=== PATIENT | male | born 1950 | race Caucasian/White ===

== ENCOUNTER 2018-05-05 16:54 | Inpatient (IN) | payer MEDICARE, OTHER, SELFPAY ==
[2018-05-05 17:19] VITALS: BP 111/67; PULSE 76; RESP 16; TEMP 36.7; O2SAT 98
--- NOTE | 2018-05-05 17:52 | DI.REPORT_ITS ---
SYMPTOM/DIAGNOSIS: FEVER IN ONCOLOGY PT PA AND LATERAL CHEST: No priors. The heart is normal in size. The lungs are clear. The mediastinal structures and pleura appear intact. CONCLUSION: Normal chest.
--- NOTE | 2018-05-05 17:52 | ED.GENADUL ---
Disposition Clinical Impression: Neutropenic fever Disposition: [facility] INPATIENT Condition: Serious Medical Decision Making - Lab Data Laboratory Tests 05/05/18 05/05/18 05/05/18 18:09 18:20 18:20 WBC RBC Hgb Hct MCV MCH MCHC RDW Plt Count MPV Immature Gran % Neutrophils % Lymphocytes % Monocytes % Eosinophils % Basophils % Absolute Neutrophils Absolute Lymphocytes Absolute Monocytes Absolute Eosinophils Absolute Basophils Differential Comment RBC Morphology Sodium 134 L Potassium 4.3 Chloride 102 Carbon Dioxide 28.8 Anion Gap 3.2 BUN 15 Creatinine 1.13 Estimated GFR/1.73 m2 >= 60.00 Glucose 106 H Lactate 1.0 Calcium 8.5 Total Bilirubin 0.5 AST 26 ALT 23 Alkaline Phosphatase 93 Total Protein 6.3 L Albumin 3.1 L Urine Color Yellow Urine Clarity Clear Urine pH 7.0 Ur Specific [place] 1.015 Urine Protein Negative Urine Ketones Negative Urine Blood Trace-intact H Urine Nitrite Negative Urine Bilirubin Negative Urine Urobilinogen 2.0 H Ur Leukocyte Esterase Negative Urine RBC 0-2 Urine WBC 0-2 Ur Epithelial Cells Rare Urine Crystals Negative Urine Bacteria Rare Urine Casts Negative Urine Mucus Negative Ur Culture Indicated? No Urine Glucose Negative 05/05/18 18:20 WBC 1.98 L* RBC 3.03 L Hgb 9.2 L Hct 26.9 L MCV 88.8 MCH 30.4 MCHC 34.2 RDW 14.0 Plt Count 119 L MPV 9.9 Immature Gran % 0.0 Neutrophils % 34.9 Lymphocytes % 53.0 Monocytes % 10.6 Eosinophils % 0.0 Basophils % 1.5 Absolute Neutrophils 0.69 L Absolute Lymphocytes 1.05 L Absolute Monocytes 0.21 Absolute Eosinophils 0.00 Absolute Basophils 0.03 Differential Comment Diff reviewed RBC Morphology Normal Sodium Potassium Chloride Carbon Dioxide Anion Gap BUN Creatinine Estimated GFR/1.73 m2 Glucose Lactate Calcium Total Bilirubin AST ALT Alkaline Phosphatase Total Protein Albumin Urine Color Urine Clarity Urine pH Ur Specific [place] Urine Protein Urine Ketones Urine Blood Urine Nitrite Urine Bilirubin Urine Urobilinogen Ur Leukocyte Esterase Urine RBC Urine WBC Ur Epithelial Cells Urine Crystals Urine Bacteria Urine Casts Urine Mucus Ur Culture Indicated? Urine Glucose Results reviewed for labs ordered during visit: Yes - Radiology Data Radiology results: report reviewed Pleural effusion, no pneumothorax. Heart and mediastinum is unremarkable. No cardiomegaly. Marginal anterior osteophytic spurring is present throughout the thoracic vertebra. There is diffuse osteoporosis. - Medical Decision Making Patient presents today with chief complaint of neutropenic fever. He reports that he is currently undergoing chemotherapy for prostate cancer. Last check had his laboratory evaluation checked just prior to recent chemotherapy dosing. This completed on 04/26/2018. At that time, patient's WBC was 4.3. He was noted to be anemic with a hemoglobin of 11.1. Creatinine was 1.38. BUN 21. GFR 52. Patient also has history of pulmonary embolism is currently anticoagulated on Eliquis. Patient appears slightly dehydrated but otherwise well. Lungs are clear. No acute ENT findings. Abdomen is soft and nontender. He does appear fatigued. Patient is offered antiemetic which he is declining at this time. He reports that this round of chemotherapy has been particularly hard on him from both a GI source as well as fatigue. He reports that he has had large amount of nausea and vomiting. States that T-max of 99.5? at home. Will obtain laboratory evaluation and chest x-ray. Discussed this plan with the patient and his , and they are agreeable with this plan. Laboratory evaluation significant for WBC of 1.90, this is down from 4.3. ANC is 0.69. Consulted with Dr. Goldstein, oncologist with [facility] in [place]. He advised that with the ANC being less than 1 and WBC, patient be admitted for IV antibiotics and continued monitoring of his CBC. He advised treating the patient prophylactically with ceftazidime. Will consult with hospitalist begin patient on IV antibiotics. Discussed this plan with the patient is and they are in agreement. Patient is now noted to be 37.6?C, this is a from 37.6 when he first presented. Patient offered Tylenol, he is agreeable to this. Prior to beginning the IV antibiotics we will obtain blood cultures peer Consulted with Dr. harley at the end. We discussed patient being admitted for neutropenic fever. Discussed patient's history and laboratory evaluation. He agrees to admission. Discussed this with the patient and his . All of their questions and concerns were addressed in agreement this plan. History of Present Illness - General Chief complaint: Fever Stated complaint: FEVER PER DR SR Time Seen by Provider: 05/05/18 17:52 Source: patient, family, RN notes reviewed Mode of arrival: ambulatory Limitations: no limitations - History of Present Illness Initial comments: Patient is 67-year-old male, covered by his , with chief complaint of fever. Patient is currently undergoing chemotherapy in [place] for prostate cancer. Patient was last seen by oncologist on 04/26/2018 at which time he received his last dose of chemotherapy. At that time, patient's white blood cell count was 4.3. Patient reports that since his most recent dose of chemotherapy he has been feeling weak, having difficulty with GI upset and fatigue. However, he noted today that he was having chills and feeling feverish. T-max of 99.5? air in height. States that he has continued to have nausea and vomiting. He denies any abdominal pain. Denies any headache. Denies visual changes. No sore throat. Denies any cough or shortness of breath. No chest pain. He denies any rash. Denies any change in bowel or bladder habits. Denies any dysuria or hematuria. Patient is on Eliquis for recent diagnosis of pulmonary embolism. Diagnosis of pulmonary emboli were made on routine scan for metastasis. - Related Data Apixaban [Eliquis] 5 mg PO BID 05/05/18 Lactulose 30 ml PO HS 05/05/18 Lorazepam [Ativan] 0.5 mg PO Q6H PRN 05/05/18 Olanzapine [Zyprexa] 5 mg PO HS 05/05/18 Ondansetron ODT [Zofran Odt] 8 mg PO Q8H PRN 05/05/18 Pantoprazole [Protonix] 40 mg PO DAILY 05/05/18 Prochlorperazine Maleate [Compazine] 10 mg PO Q6H PRN 05/05/18 Allergies Allergy/AdvReac Type Severity Reaction Status Date / Time No Known Allergies Allergy Unverified 05/05/18 17:27 Review of Systems Constitutional: see HPI Eyes: denies: vision change ENT: as per HPI Respiratory: no symptoms reported. denies: cough, shortness of breath Cardiovascular: denies: chest pain, palpitations, dyspnea on exertion Gastrointestinal: nausea, vomiting. denies: abdominal pain, diarrhea, constipation Musculoskeletal: denies: back pain Skin: denies: rash, lesions Neurological: denies: headache Past Medical History - Past Medical History Medical history: cancer, GERD, PE - Social History Living Situation: lives with family General Exam - General Limitations: no limitations General appearance: alert, in no apparent distress - Eye Eye exam: Present: normal apperance - ENT ENT exam: Present: mucous membranes dry - Neck Neck exam: Present: normal inspection. Absent: tenderness, lymphadenopathy - Respiratory Respiratory exam: Present: normal lung sounds bilaterally. Absent: respiratory distress - Cardiovascular Cardiovascular Exam: Present: regular rate, normal rhythm, normal heart sounds - GI/Abdominal GI/Abdominal exam: Present: soft, normal bowel sounds. Absent: distended, tenderness, guarding, rebound, rigid - Rectal Rectal exam: Present: deferred - Back Exam Back exam: Present: normal inspection. Absent: CVA tenderness (R), CVA tenderness (L) - Neurological Exam Neurological exam: Present: alert, normal gait - Psychiatric Psychiatric exam: Present: normal affect, normal mood - Skin Skin exam: Present: warm, dry, normal color Course Vital Signs - 24 hr 05/05/ 17:19 Temperature 36.7 C Pulse 76 Respiratory 16 Rate Blood Pressure 111/67 Pulse Oximetry 98
--- NOTE | 2018-05-05 17:55 | ED.GENADUL_ITS ---
Disposition Clinical Impression: Neutropenic fever Disposition: [facility] INPATIENT Condition: Serious Medical Decision Making - Lab Data Laboratory Tests 05/05/18 05/05/18 05/05/18 18:09 18:20 18:20 WBC RBC Hgb Hct MCV MCH MCHC RDW Plt Count MPV Immature Gran % Neutrophils % Lymphocytes % Monocytes % Eosinophils % Basophils % Absolute Neutrophils Absolute Lymphocytes Absolute Monocytes Absolute Eosinophils Absolute Basophils Differential Comment RBC Morphology Sodium 134 L Potassium 4.3 Chloride 102 Carbon Dioxide 28.8 Anion Gap 3.2 BUN 15 Creatinine 1.13 Estimated GFR/1.73 m2 >= 60.00 Glucose 106 H Lactate 1.0 Calcium 8.5 Total Bilirubin 0.5 AST 26 ALT 23 Alkaline Phosphatase 93 Total Protein 6.3 L Albumin 3.1 L Urine Color Yellow Urine Clarity Clear Urine pH 7.0 Ur Specific [place] 1.015 Urine Protein Negative Urine Ketones Negative Urine Blood Trace-intact H Urine Nitrite Negative Urine Bilirubin Negative Urine Urobilinogen 2.0 H Ur Leukocyte Esterase Negative Urine RBC 0-2 Urine WBC 0-2 Ur Epithelial Cells Rare Urine Crystals Negative Urine Bacteria Rare Urine Casts Negative Urine Mucus Negative Ur Culture Indicated? No Urine Glucose Negative 05/05/18 18:20 WBC 1.98 L* RBC 3.03 L Hgb 9.2 L Hct 26.9 L MCV 88.8 MCH 30.4 MCHC 34.2 RDW 14.0 Plt Count 119 L MPV 9.9 Immature Gran % 0.0 Neutrophils % 34.9 Lymphocytes % 53.0 Monocytes % 10.6 Eosinophils % 0.0 Basophils % 1.5 Absolute Neutrophils 0.69 L Absolute Lymphocytes 1.05 L Absolute Monocytes 0.21 Absolute Eosinophils 0.00 Absolute Basophils 0.03 Differential Comment Diff reviewed RBC Morphology Normal Sodium Potassium Chloride Carbon Dioxide Anion Gap BUN Creatinine Estimated GFR/1.73 m2 Glucose Lactate Calcium Total Bilirubin AST ALT Alkaline Phosphatase Total Protein Albumin Urine Color Urine Clarity Urine pH Ur Specific [place] Urine Protein Urine Ketones Urine Blood Urine Nitrite Urine Bilirubin Urine Urobilinogen Ur Leukocyte Esterase Urine RBC Urine WBC Ur Epithelial Cells Urine Crystals Urine Bacteria Urine Casts Urine Mucus Ur Culture Indicated? Urine Glucose Results reviewed for labs ordered during visit: Yes - Radiology Data Radiology results: report reviewed Pleural effusion, no pneumothorax. Heart and mediastinum is unremarkable. No cardiomegaly. Marginal anterior osteophytic spurring is present throughout the thoracic vertebra. There is diffuse osteoporosis. - Medical Decision Making Patient presents today with chief complaint of neutropenic fever. He reports that he is currently undergoing chemotherapy for prostate cancer. Last check had his laboratory evaluation checked just prior to recent chemotherapy dosing. This completed on 04/26/2018. At that time, patient's WBC was 4.3. He was noted to be anemic with a hemoglobin of 11.1. Creatinine was 1.38. BUN 21. GFR 52. Patient also has history of pulmonary embolism is currently anticoagulated on Eliquis. Patient appears slightly dehydrated but otherwise well. Lungs are clear. No acute ENT findings. Abdomen is soft and nontender. He does appear fatigued. Patient is offered antiemetic which he is declining at this time. He reports that this round of chemotherapy has been particularly hard on him from both a GI source as well as fatigue. He reports that he has had large amount of nausea and vomiting. States that T-max of 99.5 at home. Will obtain laboratory evaluation and chest x-ray. Discussed this plan with the patient and his , and they are agreeable with this plan. Laboratory evaluation significant for WBC of 1.90, this is down from 4.3. ANC is 0.69. Consulted with Dr. Goldstein, oncologist with [facility] in [place]. He advised that with the ANC being less than 1 and WBC, patient be admitted for IV antibiotics and continued monitoring of his CBC. He advised treating the patient prophylactically with ceftazidime. Will consult with hospitalist begin patient on IV antibiotics. Discussed this plan with the patient is and they are in agreement. Patient is now noted to be 37.6 C, this is a from 37.6 when he first presented. Patient offered Tylenol, he is agreeable to this. Prior to beginning the IV antibiotics we will obtain blood cultures peer Consulted with Dr. harley at the end. We discussed patient being admitted for neutropenic fever. Discussed patient's history and laboratory evaluation. He agrees to admission. Discussed this with the patient and his . All of their questions and concerns were addressed in agreement this plan. History of Present Illness - General Chief complaint: Fever Stated complaint: FEVER PER DR SR Time Seen by Provider: 05/05/18 17:52 Source: patient, family, RN notes reviewed Mode of arrival: ambulatory Limitations: no limitations - History of Present Illness Initial comments: Patient is 67-year-old male, covered by his , with chief complaint of fever. Patient is currently undergoing chemotherapy in [place] for prostate cancer. Patient was last seen by oncologist on 04/26/2018 at which time he received his last dose of chemotherapy. At that time, patient's white blood cell count was 4.3. Patient reports that since his most recent dose of chemotherapy he has been feeling weak, having difficulty with GI upset and fatigue. However, he noted today that he was having chills and feeling feverish. T-max of 99.5 air in height. States that he has continued to have nausea and vomiting. He denies any abdominal pain. Denies any headache. Denies visual changes. No sore throat. Denies any cough or shortness of breath. No chest pain. He denies any rash. Denies any change in bowel or bladder habits. Denies any dysuria or hematuria. Patient is on Eliquis for recent diagnosis of pulmonary embolism. Diagnosis of pulmonary emboli were made on routine scan for metastasis. - Related Data Apixaban [Eliquis] 5 mg PO BID 05/05/18 Lactulose 30 ml PO HS 05/05/18 Lorazepam [Ativan] 0.5 mg PO Q6H PRN 05/05/18 Olanzapine [Zyprexa] 5 mg PO HS 05/05/18 Ondansetron ODT [Zofran Odt] 8 mg PO Q8H PRN 05/05/18 Pantoprazole [Protonix] 40 mg PO DAILY 05/05/18 Prochlorperazine Maleate [Compazine] 10 mg PO Q6H PRN 05/05/18 Allergies Allergy/AdvReac Type Severity Reaction Status Date / Time No Known Allergies Allergy Unverified 05/05/18 17:27 Review of Systems Constitutional: see HPI Eyes: denies: vision change ENT: as per HPI Respiratory: no symptoms reported. denies: cough, shortness of breath Cardiovascular: denies: chest pain, palpitations, dyspnea on exertion Gastrointestinal: nausea, vomiting. denies: abdominal pain, diarrhea, constipation Musculoskeletal: denies: back pain Skin: denies: rash, lesions Neurological: denies: headache Past Medical History - Past Medical History Medical history: cancer, GERD, PE - Social History Living Situation: lives with family General Exam - General Limitations: no limitations General appearance: alert, in no apparent distress - Eye Eye exam: Present: normal apperance - ENT ENT exam: Present: mucous membranes dry - Neck Neck exam: Present: normal inspection. Absent: tenderness, lymphadenopathy - Respiratory Respiratory exam: Present: normal lung sounds bilaterally. Absent: respiratory distress - Cardiovascular Cardiovascular Exam: Present: regular rate, normal rhythm, normal heart sounds - GI/Abdominal GI/Abdominal exam: Present: soft, normal bowel sounds. Absent: distended, tenderness, guarding, rebound, rigid - Rectal Rectal exam: Present: deferred - Back Exam Back exam: Present: normal inspection. Absent: CVA tenderness (R), CVA tenderness (L) - Neurological Exam Neurological exam: Present: alert, normal gait - Psychiatric Psychiatric exam: Present: normal affect, normal mood - Skin Skin exam: Present: warm, dry, normal color Course Vital Signs - 24 hr 05/05/18 17:19 Temperature 36.7 C Pulse 76 Respiratory 16 Rate Blood Pressure 111/67 Pulse Oximetry 98
[2018-05-05 18:14] LABS: Bilirubin Negative (Negative); Blood Trace-intact (Negative); Clarity Clear; Glucose Negative (Negative); Ketones Negative (Negative); Leukocyte Esterase Negative (Negative); Nitrite Negative (Negative); Specific Gravity 1.015 (1.005-1.025)
[2018-05-05] MEDS: Normal Saline 1,000 ML 1000 ML IV (18:20)
[2018-05-05] MEDS: Normal Saline Flush 10 ML SYR IVP (18:20)
[2018-05-05 18:23] LABS: Bacteria Rare HPF (Negative); C & S Indicated? No; Casts Negative LPF (Negative); Crystals Negative HPF (Negative); Epithelial Cells Rare HPF (Negative); Mucus Negative (Negative); RBC 0-2 (0-2); WBC 0-2 HPF (0-5)
[2018-05-05 18:33] LABS: Absolute Basophil Count 0.03 k/cumm (0.0-0.2); Absolute Lymphocyte Count 1.05 k/cumm (1.2-3.4); Absolute Monocyte Count 0.21 k/cumm (0.11-0.7); Absolute Neutrophil Count 0.69 k/cumm (1.2-6.7); Basophils % 1.5; HCT 26.9 % (40.0-50.0); HGB 9.2 g/dL (13.5-17.5); Mean Corp. HGB Concentration 34.2 g/dL (32.0-36.0); Mean Corpuscular Hemoglobin 30.4 pg (27.0-33.0); Mean Corpuscular Volume 88.8 fL (80-95); Mean Platelet Volume 9.9 fL (8.0-11.0); Monocytes % 10.6; Neutrophils % 34.9; Platelet Count 119 x1000/uL (130-400); RBC 3.03 m/cumm (4.50-6.00)
[2018-05-05 18:40] LABS: White Blood Cell Count 1.98 k/cumm (4.4-10.8)
[2018-05-05 18:44] LABS: ALT 23 U/L (12-78); AST 26 U/L (15-37); Albumin 3.1 g/dL (3.4-5.0); Alkaline Phosphatase 93 U/L (46-116); Anion Gap 3.2 mmol/L (3-11); BUN 15 mg/dL (7-18); Bilirubin, Total 0.5 mg/dL (0.2-1.0); CO2 28.8 mmol/L (21.0-32.0); CREATININE 1.13 mg/dL (0.70-1.30); Calcium 8.5 mg/dL (8.5-10.1); Chloride 102 mmol/L (98-107); Glucose 106 mg/dL (70-100); Potassium 4.3 mmol/L (3.5-5.1); Sodium 134 mmol/L (136-145); Total Protein 6.3 g/dL (6.4-8.2)
[2018-05-05 18:47] LABS: Diff Comment Diff Reviewed; RBC Morphology Normal
[2018-05-05] MEDS: Normal Saline 1,000 ML 125 ML IV (19:25)
[2018-05-05 19:36] VITALS: BP 131/78; PULSE 63; RESP 16; TEMP 37.6; O2SAT 99
[2018-05-05 20:00] VITALS: TEMP 37.6
[2018-05-05] MEDS: Acetaminophen 500 MG TAB 1000 MG PO (20:00)
[2018-05-05] MEDS: Ondansetron 4 MG/2 ML VIAL IVP (20:00)
--- NOTE | 2018-05-05 20:16 | DI.VRAD_ITS ---
EXAM: XR Chest, 2 Views EXAM DATE/TIME: 05/05/2018 7:46 PM CLINICAL HISTORY: 67 years old, male; Signs and symptoms; Fever; Patient HX: Fever in oncology patient TECHNIQUE: XR of the chest, 2 views. COMPARISON: No relevant prior studies available. FINDINGS: Lungs: Unremarkable. No consolidation. Pleural space: Unremarkable. No pleural effusion. No pneumothorax. Heart/Mediastinum: Unremarkable. No cardiomegaly. Bones/joints: Marginal anterior osteophytic spurring is present throughout the thoracic vertebrae. There is diffuse osteoporosis. IMPRESSION: No acute pulmonary disease or acute thoracic findings are detected. Dictated and Authenticated by: Erasmo Lewis MD. Ordering:BERNIE CARUSO MD
[2018-05-05 20:47] VITALS: BP 130/78; PULSE 64; RESP 14; TEMP 37.4; O2SAT 98
[2018-05-05 20:58] VITALS: TEMP 37.4
[2018-05-05 21:00] VITALS: BP 150/74; PULSE 62; RESP 16; TEMP 37; O2SAT 98
--- NOTE | 2018-05-05 23:41 | PDOC.HP ---
Date of Service: 05/05/18 Time of Service: 23:41 Assessment/Plan - Assessment/Plan (1) Neutropenic fever Assessment: Unclear as to the origin of his fevers. He has had some constipation issues with this round of chemotherapy but has not noticed any diarrhea nor any melena and he has no abdominal pain. He has no dysuria and his urinalysis looks fairly benign. Plan: Await results of his blood and urine cultures. Per guidelines from recommendations and up to date for treatment of neutropenic fevers I will start him on cefepime 2 g IV every 8 hours. I do not see signs of a staph infection and therefore I am not going to start vancomycin at this time. Patient does not recall receiving any Neupogen or Neulasta with his last try to keep therapy. We will continue to monitor his ANC and keep him in isolation. I will asked the day shift hospitalist to contact his oncologist for further guidance and consideration for GM-CSF rescue therapy History of Present Illness - History of Present Illness Chief Complaint: Fever and nausea History of Present Illness: 67-year-old male with recurrent prostate cancer. Initially treated 5 years ago with radiation treatment done at [facility] now undergoing chemotherapy at [facility] in [facility]. He reports that he started his fourth round of chemotherapy on April 24-. Since that time he says he is not quite recovered from his chemotherapy he started with nausea and vomiting began last night around 2 AM and then yesterday morning he just felt weak and nauseated all day long until he had a fever of 99.9 around 2 PM he called his oncologist and got the on-call provider Dr. Goldstein who advised him to come to his local hospital to be evaluated. Patient denies any rigors or sweats but is felt chilled today. He denies any headaches or nasal congestion or sinus pressure or earache. He denies any abdominal pain but admits to some constipation since last Saturday. He has had no melena nor any hematochezia. He denies any dysuria or hematuria. He has had no skin ulcerations or open sores. He denies any cough or sputum production or chest pain. He denies any dental pain. He was evaluated emergency room by TEMI Ladd who performed routine labs and chest x-ray. Evaluation in the ER revealed a mild temperature 37.6 but otherwise normal vital signs and normal oxygen saturation of 98% on room air. Chest x-ray showed no acute pulmonary disease and no acute thoracic findings. Lungs heart pleural space were all unremarkable. Routine labs include a CBC that showed leukopenia and neutropenia. Total WBC count was 1980 with an absolute neutrophil count of 690. He is also anemic with a hemoglobin 9.2 g, hematocrit 26%, thrombocytopenia with a platelet count 119,000. Routine CMP was fairly unremarkable. His blood lactate level is normal at 1. Total protein and albumin are slightly low 6.3 and 3.1. His urinalysis was fairly unremarkable just showed a trace of blood but was negative for protein, ketones, leukocyte esterase, nitrates, bilirubin, crystals, casts, mucus, glucose. Rare bacteria and only 0-2 red cells per high-powered field and 0-2 white cells per high-powered field. Urine culture was sent and blood cultures were obtained ?2 sets. He was given a dose of Fortaz 2 g IV in the emergency room. Patient also has a history of pulmonary embolism that was diagnosed about 6 weeks ago just before his second round of chemotherapy and was incidentally found when they performed a CT scan as part of his surveillance of his prostate cancer. - Past Medical History Pulmonary: Pulmonary embolus (Diagnosed by incident after a CT scan for cancer staging, diagnosed couple weeks ago and started on apixaban) AUTOM[employer]BI[employer] DESIGN[employer]: Other (Patient has had 2 concussions 1 after falling off a roof while shingling his home in 2000 the second occurred in October 2017 after a fall while ice skating) Gastrointestinal: Diverticulosis, GERD Heme/Onc: Cancer (Prostate cancer currently receiving treatment from [facility] in [facility] last seen April 26, [address] Goldstein) - Past Surgical History Past Surgical History: Appendectomy, Other (Colonoscopy), Other (Fractured collarbone, fractured toes; right thumb) - Past Social History Smoke: No Alcohol: Rare (No alcohol since this summer, however until the summer he would drink 1 glass of beer per day) Drugs: Marijuana Lives: With Family (Lives with his . He his have 2 grown children including a daughter age 43 and a son age 39 do not live with him. Patient's have a summer home at [facility] in [place], [place]. Otherwise they live in [facility] rest of the year.) Review of Systems - Review of Systems Constitutional: Fever, Chills, Weakness, Malaise. denies: Sweats Eyes: denies: Pain, Vision Change, Conjunctivae Inflammation, Eyelid Inflammation, Redness ENT: Other (Since starting chemotherapy is noticed a decrease in his hearing acuity and tinnitus). denies: Ear Pain, Ear Discharge, Nose Pain, Nose Discharge, Nose Congestion, Mouth Pain, Mouth Swelling, Throat Pain, Throat Swelling Respiratory: denies: Cough, Dry, Shortness of Breath, Hemoptysis, SOB with Excertion, Pleuritic Pain, Sputum, Wheezing Cardiovascular: denies: Chest Pain, Palpitations, Orthopnea, Paroxysmal Noc. Dyspnea, Edema, Light Headedness Gastrointestinal: Nausea, Vomiting, Constipation. denies: Abdominal Pain, Diarrhea, Melena, Hematochezia Genitourinary: denies: Dysuria, Frequency, Incontinence, Hematuria, Retention Musculoskeletal: denies: Neck Pain, Shoulder Pain, Arm Pain, Back Pain, Hand Pain, Leg Pain, Foot Pain Skin: denies: Rash, Lesions, Dario, Bruising Neurological: denies: Weakness, Numbness, Incoordination, Change in Speech, Confusion, Seizures - Medications/Allergies Allergies/Adverse Reactions: Allergies Allergy/AdvReac Type Severity Reaction Status Date / Time No Known Allergies Allergy Unverified 05/05/18 17:27 Medications: Current Medications Acetaminophen (Tylenol) 0 mg PO Q4H PRN PRN Al Hydrox/Mg Hydrox/Simethicone (Mylanta Liquid) 30 ml PO Q2H PRN PRN Apixaban (Eliquis) 5 mg PO BID [facility] Dimethicone/Zinc Oxide (Chaitanya Protect Cream) 0 gm TP PRN PRN Docusate Sodium (Colace) 100 mg PO TID PRN PRN Sodium Chloride (Saline 1000ml Bag) 1,000 mls @ 125 mls/hr IV INFUSION [facility] Last Admin: 05/05/18 19:25 Dose: 125 mls/hr Ceftazidime 2,000 mg/ Sodium (Chloride) 100 mls @ 200 mls/hr IVPB NOW [facility] Last Admin: 05/05/18 20:47 Dose: 200 mls/hr Ringer's Solution () 1,000 mls @ 125 mls/hr IV INFUSION [facility] Cefepime HCl 2 gm/ Sodium (Chloride) 100 mls @ 200 mls/hr IVPB Q8H ANG IV Miscellaneous Supplies () 1 each IV DIRECTED ANG IV Miscellaneous Supplies () 1 each IV DIRECTED ANG Lactulose (Cephulac) 20 gm PO HS ANG Lorazepam (Ativan) 0.5 mg PO QID PRN PRN PRN Reason: Anxiety Magnesium Hydroxide (Milk Of Magnesia) 30 ml PO DAILY PRN PRN Olanzapine (Zyprexa) 5 mg PO HS ANG Ondansetron HCl (Zofran Odt) 8 mg PO Q8H PRN PRN PRN Reason: Nausea Pantoprazole Sodium (Protonix) 40 mg PO DAILY ANG Polyethylene Glycol (Miralax) 17 gm PO DAILY PRN PRN PRN Reason: Constipation Prochlorperazine Maleate (Compazine) 10 mg PO Q6H PRN PRN PRN Reason: Nausea Sodium Chloride (Saline Flush 10 Ml Syringe) 0 ml IVP PRN PRN Last Admin: 05/05/18 18:20 Dose: 10 ml Sodium Chloride (Saline Flush 10 Ml Syringe) 0 ml IVP PRN PRN Active Medications Generic Name Dose Route Start Last Admin Trade Name Freq PRN Reason Stop Dose Admin Acetaminophen 0 mg 05/05/18 22:16 Tylenol PO Q4H PRN PRN Al Hydrox/Mg Hydrox/Simethicone 30 ml 05/05/18 22:16 Mylanta Liquid PO Q2H PRN PRN Apixaban 5 mg 05/05/18 22:32 Eliquis PO BID ANG Dimethicone/Zinc Oxide 0 gm 05/05/18 22:16 Chaitanya Protect Cream TP PRN PRN Docusate Sodium 100 mg 05/05/18 22:16 Colace PO TID PRN PRN Sodium Chloride 1,000 mls @ 125 mls/hr 05/05/18 19:30 05/05/18 19:25 Saline 1000ml Bag IV 125 mls/hr INFUSION ANG Administration Ceftazidime 2,000 mg/ Sodium 100 mls @ 200 mls/hr 05/05/18 19:30 05/05/18 20:47 Chloride IVPB 200 mls/hr NOW ANG Administration Ringer's Solution 1,000 mls @ 125 mls/hr 05/05/18 22:30 IV INFUSION ANG Cefepime HCl 2 gm/ Sodium 100 mls @ 200 mls/hr 05/06/18 06:00 Chloride IVPB Q8H [facility] IV Miscellaneous Supplies 1 each 05/05/18 18:00 IV DIRECTED [facility] IV Miscellaneous Supplies 1 each 05/05/18 20:00 IV DIRECTED [facility] Lactulose 20 gm 05/06/18 22:00 Cephulac PO HS [facility] Lorazepam 0.5 mg 05/05/18 22:32 Ativan PO QID PRN PRN Anxiety Magnesium Hydroxide 30 ml 05/05/18 22:16 Milk Of Magnesia PO DAILY PRN PRN Olanzapine 5 mg 05/05/18 22:32 Zyprexa PO HS [facility] Ondansetron HCl 8 mg 05/05/18 22:32 Zofran Odt PO Q8H PRN PRN Nausea Pantoprazole Sodium 40 mg 05/06/18 08:30 Protonix PO DAILY [facility] Polyethylene Glycol 17 gm 05/05/18 22:16 Miralax PO DAILY PRN PRN Constipation Prochlorperazine Maleate 10 mg 05/05/18 22:32 Compazine PO Q6H PRN PRN Nausea Sodium Chloride 0 ml 05/05/18 17:52 05/05/18 18:20 Saline Flush 10 Ml Syringe IVP 10 ml PRN PRN Administration Sodium Chloride 0 ml 05/05/18 19:46 Saline Flush 10 Ml Syringe IVP PRN PRN Apixaban [Eliquis] 5 mg PO BID 05/05/18 Lactulose 30 ml PO HS 05/05/18 Lorazepam [Ativan] 0.5 mg PO Q6H PRN 05/05/18 Olanzapine [Zyprexa] 5 mg PO HS 05/05/18 Ondansetron ODT [Zofran Odt] 8 mg PO Q8H PRN 05/05/18 Pantoprazole [Protonix] 40 mg PO DAILY 05/05/18 Prochlorperazine Maleate [Compazine] 10 mg PO Q6H PRN 05/05/18 Objective - Exam Vitals and I&O: Vital Signs Temp 37.0 C 05/05/18 21:00 Pulse 62 05/05/18 21:00 Resp 16 05/05/18 21:00 BP 150/74 05/05/18 21:00 Pulse Ox 98 05/05/18 21:00 Intake & Output 05/04/18 05/05/18 05/05/18 23:59 11:59 23:59 Intake Total 1000 Balance 1000 Weight 94.347 kg Intake: IV 1000 General: Alert, Oriented x3, Cooperative, No acute distress HEENT: Atraumatic, PERRLA, EOMI, Mucous membr. moist/pink, Other (Teeth are in fair repair but I do not see any evidence of gingivitis. He has a broken tooth in his left upper premolar he has a number of fillings but there is no sign of acute dental infection and he has no dental pain) Neck: Supple, +2 carotid pulse wo bruit. denies: JVD, Thyromegaly, LAD Lungs: Clear to auscultation, Normal air movement Cardiovascular: Regular rate, Normal S1, Normal S2. denies: Murmurs, Gallops, Rubs Abdomen: Normal bowel sounds, Soft. denies: Tenderness, Hepatospenomegaly, Masses Extremities: Normal pulses. denies: Cyanosis, Edema, Tenderness/swelling Skin: denies: Rashes, Breakdown, Significant lesion Neurological: Normal speech, Strength at 5/5 X4 ext, Normal tone, Sensation intact Psych/Mental Status: Mental status NL, Mood NL Results - Laboratory Data Result Diagrams: 05/05/18 18:20 05/05/18 18:20 Laboratory Results: Laboratory Tests 05/05/18 05/05/18 05/05/18 18:09 18:20 18:20 WBC RBC Hgb Hct MCV MCH MCHC RDW Plt Count MPV Immature Gran % Neutrophils % Lymphocytes % Monocytes % Eosinophils % Basophils % Absolute Neutrophils Absolute Lymphocytes Absolute Monocytes Absolute Eosinophils Absolute Basophils Differential Comment RBC Morphology Sodium 134 L Potassium 4.3 Chloride 102 Carbon Dioxide 28.8 Anion Gap 3.2 BUN 15 Creatinine 1.13 Estimated GFR/1.73 m2 >= 60.00 Glucose 106 H Lactate 1.0 Calcium 8.5 Total Bilirubin 0.5 AST 26 ALT 23 Alkaline Phosphatase 93 Total Protein 6.3 L Albumin 3.1 L Urine Color Yellow Urine Clarity Clear Urine pH 7.0 Ur Specific [place] 1.015 Urine Protein Negative Urine Ketones Negative Urine Blood Trace-intact H Urine Nitrite Negative Urine Bilirubin Negative Urine Urobilinogen 2.0 H Ur Leukocyte Esterase Negative Urine RBC 0-2 Urine WBC 0-2 Ur Epithelial Cells Rare Urine Crystals Negative Urine Bacteria Rare Urine Casts Negative Urine Mucus Negative Ur Culture Indicated? No Urine Glucose Negative 05/05/18 18:20 WBC 1.98 L* RBC 3.03 L Hgb 9.2 L Hct 26.9 L MCV 88.8 MCH 30.4 MCHC 34.2 RDW 14.0 Plt Count 119 L MPV 9.9 Immature Gran % 0.0 Neutrophils % 34.9 Lymphocytes % 53.0 Monocytes % 10.6 Eosinophils % 0.0 Basophils % 1.5 Absolute Neutrophils 0.69 L Absolute Lymphocytes 1.05 L Absolute Monocytes 0.21 Absolute Eosinophils 0.00 Absolute Basophils 0.03 Differential Comment Diff reviewed RBC Morphology Normal Sodium Potassium Chloride Carbon Dioxide Anion Gap BUN Creatinine Estimated GFR/1.73 m2 Glucose Lactate Calcium Total Bilirubin AST ALT Alkaline Phosphatase Total Protein Albumin Urine Color Urine Clarity Urine pH Ur Specific [place] Urine Protein Urine Ketones Urine Blood Urine Nitrite Urine Bilirubin Urine Urobilinogen Ur Leukocyte Esterase Urine RBC Urine WBC Ur Epithelial Cells Urine Crystals Urine Bacteria Urine Casts Urine Mucus Ur Culture Indicated? Urine Glucose - Imaging Studies Imaging Studies: PA and lateral chest x-ray shows no acute cardiopulmonary disease
[2018-05-06] MEDS: OLANZapine 5 MG TAB PO ×2 (00:32→21:48)
[2018-05-06] MEDS: Apixaban 5 MG TAB PO ×3 (00:32→20:39)
[2018-05-06] MEDS: Docusate Sodium 100 MG CAP PO ×2 (00:33→08:28)
[2018-05-06] MEDS: Ondansetron O.D.T. 4 MG TABEF 8 MG PO ×3 (00:38→23:21)
[2018-05-06] MEDS: CEFEPIME 2 GM in Normal Saline 100 ML IVPB ×3 (05:38→21:46)
[2018-05-06] MEDS: Normal Saline 1,000 ML 125 ML IV (05:39)
[2018-05-06 06:58] LABS: Absolute Basophil Count 0.03 k/cumm (0.0-0.2); Absolute Eosinophil Count 0.02 k/cumm (0.0-0.7); Absolute Lymphocyte Count 1.25 k/cumm (1.2-3.4); Absolute Monocyte Count 0.18 k/cumm (0.11-0.7); Basophils % 1.5; HCT 24.7 % (40.0-50.0); HGB 8.2 g/dL (13.5-17.5); Lymphocytes % 63.5; Mean Corp. HGB Concentration 33.2 g/dL (32.0-36.0); Mean Corpuscular Hemoglobin 29.8 pg (27.0-33.0); Mean Corpuscular Volume 89.8 fL (80-95); Mean Platelet Volume 9.7 fL (8.0-11.0); Monocytes % 9.1; Neutrophils % 24.9; RBC 2.75 m/cumm (4.50-6.00); RBC Distribution Width 14.2 % (11.8-14.1)
[2018-05-06 07:01] LABS: Anion Gap 4.6 mmol/L (3-11); BUN 14 mg/dL (7-18); C-Reactive Protein 5.14 mg/dL (0.0-0.3); CO2 26.4 mmol/L (21.0-32.0); CREATININE 1.11 mg/dL (0.70-1.30); Calcium 8.2 mg/dL (8.5-10.1); Chloride 108 mmol/L (98-107); Glucose 98 mg/dL (70-100); Potassium 4.1 mmol/L (3.5-5.1); Sodium 139 mmol/L (136-145)
[2018-05-06 07:26] LABS: Absolute Neutrophil Count 0.49 k/cumm (1.2-6.7); White Blood Cell Count 1.97 k/cumm (4.4-10.8)
[2018-05-06 07:27] LABS: Platelet Count 102 x1000/uL (130-400)
[2018-05-06 07:28] LABS: Diff Comment Agrees w/ Instrument; RBC Morphology Normal
[2018-05-06 08:05] LABS: ESR 57 MM/HR (1-20)
[2018-05-06] MEDS: Lactated Ringers 1,000 ML 125 ML IV ×2 (08:10→16:40)
[2018-05-06 08:25] VITALS: BP 149/87; PULSE 60; RESP 22; TEMP 36.9; O2SAT 99
[2018-05-06] MEDS: Pantoprazole 40 MG TABCR PO (08:27)
--- NOTE | 2018-05-06 11:22 | PDOC.CMIN ---
Date of Service: 05/06/18 Time of Service: 11:22 Care Management Initial Assess REASON FOR HOSPITALIZATION:: Neutropenic fever. PAST MEDICAL HISTORY/PAST SURGICAL HISTORY:: Prostate cancer, pulmonary embolus, diverticulosis, GERD, concussion x2. Surgical hx: appendectomy. PREVIOUS FUNCTIONAL STATUS/SOCIAL/FAMILY SUPPORTS:: Brice resides at [facility] in [place] during the summer months and in [place], [place] during the remainder of the year. He lives with his , Tasha, and has two adult children who live out of state. 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 He has been diagnosed with prostate cancer and was initially treated five years ago with radiation. He reports that he is now undergoing his fourth round of chemotherapy (04/24-04/26) at the [facility] in [place]. Brice reports that he is feeling much weaker since the fourth round of chemo but continues to be independent with his ADLs. CURRENT FUNCTIONAL STATUS:: Brice is lying in bed with his sister at bedside when CM visits this morning. He is engaged in conversation, makes good eye contact and is talkative. Brice reports that he is feeling better today and had a great breakfast. He reports that this was the first meal he had eaten in over 24 hours. Brice continues to be on neutropenic precautions and is receiving IV antibiotics and fluids. ADVANCE DIRECTIVES:: Not on file with [place]. Pt's will bring copy in for scanning. Has patient been provided with information about the portal?: No Did the patient sign up for the portal?: No CODE STATUS:: DNR/DNI INSURANCE COVERAGE / FINANCIAL ISSUES:: Medicare, [facility]. CURRENT HOME/COMMUNITY SERVICES/EQUIPMENT:: No home services. PRIMARY CARE PHYSICIAN:: Dr. Lino To. POTENTIAL DISCHARGE NEEDS:: Follow up appointment with pt's PCP and oncologist. PATIENT/FAMILY EDUCATION NEEDS:: Discharge education, any limitations and follow up plan of care. Ask Me Three discussion. ANTICIPATED BARRIERS TO DISCHARGE:: No anticipated barriers to discharge. TRANSPORTATION:: Brice will discharge home via private vehicle with his , Tasha. PLAN:: Brice will discharge when medically clear per MD. Anticipate patient will discharge with no anticipated services and follow up with his PCP and oncologist. CM will continue to provide support to patient, family and care team regarding discharge planning and disposition.
--- NOTE | 2018-05-06 11:51 | INITIAL_ITS ---
Date of Service: 05/06/18 Time of Service: 11:22 Care Management Initial Assess REASON FOR HOSPITALIZATION:: Neutropenic fever. PAST MEDICAL HISTORY/PAST SURGICAL HISTORY:: Prostate cancer, pulmonary embolus , diverticulosis, GERD, concussion x2. Surgical hx: appendectomy. PREVIOUS FUNCTIONAL STATUS/SOCIAL/FAMILY SUPPORTS:: Brice resides at [facility] in [place] during the summer months and in [place], [place] during the remainder of the year. He lives with his , Tasha, and has two adult children who live out of state. 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 He has been diagnosed with prostate cancer and was initially treated five years ago with radiation. He reports that he is now undergoing his fourth round of chemotherapy (04/24-04/26) at the [facility] in [place]. Brice reports that he is feeling much weaker since the fourth round of chemo but continues to be independent with his ADLs. CURRENT FUNCTIONAL STATUS:: Brice is lying in bed with his sister at bedside when CM visits this morning. He is engaged in conversation, makes good eye contact and is talkative. Brice reports that he is feeling better today and had a great breakfast. He reports that this was the first meal he had eaten in over 24 hours. Brice continues to be on neutropenic precautions and is receiving IV antibiotics and fluids. ADVANCE DIRECTIVES:: Not on file with [place]. Pt's will bring copy in for scanning. Has patient been provided with information about the portal?: No Did the patient sign up for the portal?: No CODE STATUS:: DNR/DNI INSURANCE COVERAGE / FINANCIAL ISSUES:: Medicare, [facility]. CURRENT HOME/COMMUNITY SERVICES/EQUIPMENT:: No home services. PRIMARY CARE PHYSICIAN:: Dr. Lino To. POTENTIAL DISCHARGE NEEDS:: Follow up appointment with pt's PCP and oncologist. PATIENT/FAMILY EDUCATION NEEDS:: Discharge education, any limitations and follow up plan of care. Ask Me Three discussion. ANTICIPATED BARRIERS TO DISCHARGE:: No anticipated barriers to discharge. TRANSPORTATION:: Brice will discharge home via private vehicle with his , Tasha. PLAN:: Brice will discharge when medically clear per MD. Anticipate patient will discharge with no anticipated services and follow up with his PCP and oncologist. CM will continue to provide support to patient, family and care team regarding discharge planning and disposition.
[2018-05-06 12:30] VITALS: TEMP 36.8
--- NOTE | 2018-05-06 15:15 | PDOC.PROG ---
Date of Service: 05/06/18 Time of Service: 09:40 Assessment/Plan - Assessment/Plan (1) Neutropenic fever Assessment: Secondary to chemotherapy for prostate cancer. Currently stable clinically. No fevers, but ANC now below 500. Will continue cefepime. Continue reverse precautions. Will plan to check in with his oncologist at [facility] regarding duration of admission and possible use of G-CSF agents to boost ANC. (2) Pulmonary emboli Assessment: Related to his active cancer. Will continue the anticoagulant. History of Present Illness - History of Present Illness Chief Complaint: fevers History of Present Illness: Events: none overnight Patient feels better, no longer feels hot. Denies other new symptoms like cough, dysuria, diarrhea. He is eating. Review of Systems - Review of Systems Constitutional: denies: Fever, Chills, Sweats ENT: denies: Mouth Pain, Throat Pain Respiratory: denies: Cough, Shortness of Breath, Sputum Cardiovascular: denies: Chest Pain, Palpitations Gastrointestinal: denies: Nausea, Vomiting, Abdominal Pain, Diarrhea, Constipation Genitourinary: denies: Dysuria, Frequency Skin: denies: Rash, Lesions Neurological: denies: Confusion - Medications/Allergies Allergies/Adverse Reactions: Allergies Allergy/AdvReac Type Severity Reaction Status Date / Time No Known Allergies Allergy Unverified 05/05/18 17:27 Medications: Current Medications Acetaminophen (Tylenol) 0 mg PO Q4H PRN PRN Al Hydrox/Mg Hydrox/Simethicone (Mylanta Liquid) 30 ml PO Q2H PRN PRN Apixaban (Eliquis) 5 mg PO BID [facility] Last Admin: 05/06/18 08:27 Dose: 5 mg Dimethicone/Zinc Oxide (Chaitanya Protect Cream) 0 gm TP PRN PRN Docusate Sodium (Colace) 100 mg PO TID PRN PRN Last Admin: 05/06/18 08:28 Dose: 100 mg Ringer's Solution () 1,000 mls @ 125 mls/hr IV INFUSION [facility] Last Admin: 05/06/18 08:10 Dose: 125 mls/hr Cefepime HCl 2 gm/ Sodium (Chloride) 100 mls @ 200 mls/hr IVPB Q8H [facility] Last Admin: 05/06/18 14:35 Dose: 200 mls/hr IV Miscellaneous Supplies () 1 each IV DIRECTED [facility] Lactulose (Cephulac) 20 gm PO HS [facility] Lorazepam (Ativan) 0.5 mg PO QID PRN PRN PRN Reason: Anxiety Magnesium Hydroxide (Milk Of Magnesia) 30 ml PO DAILY PRN PRN Olanzapine (Zyprexa) 5 mg PO HS [facility] Last Admin: 05/06/18 00:32 Dose: 5 mg Ondansetron HCl (Zofran Odt) 8 mg PO Q8H PRN PRN PRN Reason: Nausea Last Admin: 05/06/18 12:18 Dose: 8 mg Pantoprazole Sodium (Protonix) 40 mg PO DAILY [facility] Last Admin: 05/06/18 08:27 Dose: 40 mg Polyethylene Glycol (Miralax) 17 gm PO DAILY PRN PRN PRN Reason: Constipation Prochlorperazine Maleate (Compazine) 10 mg PO Q6H PRN PRN PRN Reason: Nausea Sodium Chloride (Saline Flush 10 Ml Syringe) 0 ml IVP PRN PRN Objective - Exam Vitals and I&O: Vital Signs Temp 36.8 C 05/06/18 12:30 Pulse 60 05/06/18 08:25 Resp 22 05/06/18 08:25 BP 149/87 05/06/18 08:25 Pulse Ox 99 05/06/18 08:25 Intake & Output 05/05/18 05/06/18 05/06/18 23:59 11:59 23:59 Intake Total 125 1153 1231 Balance 125 1153 1231 Weight 94.347 kg 93.1 kg Intake: IV 125 1033 871 Oral 120 360 Other: Comment voided in toilet independently Voiding Methods Toilet General: Alert, Oriented x3, Cooperative, No acute distress HEENT: EOMI (conj clear), Mucous membr. moist/pink Neck: Supple. denies: LAD Lungs: Clear to auscultation, Normal air movement Cardiovascular: Regular rate, Normal S1, Normal S2 Abdomen: Normal bowel sounds, Soft. denies: Tenderness, Hepatospenomegaly, Masses Extremities: denies: Cyanosis, Edema Skin: denies: Rashes, Breakdown Psych/Mental Status: Mental status NL, Mood NL - Results Results: Laboratory Results WBC 1.97 k/cumm (4.4-10.8) L* 05/06/18 06:35 RBC 2.75 m/cumm (4.50-6.00) L 05/06/18 06:35 Hgb 8.2 g/dL (13.5-17.5) L 05/06/18 06:35 Hct 24.7 % (40.0-50.0) L 05/06/18 06:35 MCV 89.8 fL (80-95) 05/06/18 06:35 MCH 29.8 pg (27.0-33.0) 05/06/18 06:35 MCHC 33.2 g/dL (32.0-36.0) 05/06/18 06:35 RDW 14.2 % (11.8-14.1) H 05/06/18 06:35 Plt Count 102 x1000/uL (130-400) L 05/06/18 06:35 MPV 9.7 fL (8.0-11.0) 05/06/18 06:35 Immature Gran % 0.0 05/06/18 06:35 Neutrophils % 24.9 05/06/18 06:35 Lymphocytes % 63.5 05/06/18 06:35 Monocytes % 9.1 05/06/18 06:35 Eosinophils % 1.0 05/06/18 06:35 Basophils % 1.5 05/06/18 06:35 Absolute Neutrophils 0.49 k/cumm (1.2-6.7) L* 05/06/18 06:35 Absolute Lymphocytes 1.25 k/cumm (1.2-3.4) 05/06/18 06:35 Absolute Monocytes 0.18 k/cumm (0.11-0.7) 05/06/18 06:35 Absolute Eosinophils 0.02 k/cumm (0.0-0.7) 05/06/18 06:35 Absolute Basophils 0.03 k/cumm (0.0-0.2) 05/06/18 06:35 Differential Comment Agrees w/ instrument 05/06/18 06:35 RBC Morphology Normal 05/06/18 06:35 ESR 57 MM/HR (1-20) H 05/06/18 06:35 Sodium 139 mmol/L (136-145) 05/06/18 06:35 Potassium 4.1 mmol/L (3.5-5.1) 05/06/18 06:35 Chloride 108 mmol/L (98-107) H 05/06/18 06:35 Carbon Dioxide 26.4 mmol/L (21.0-32.0) 05/06/18 06:35 Anion Gap 4.6 mmol/L (3-11) 05/06/18 06:35 BUN 14 mg/dL (7-18) 05/06/18 06:35 Creatinine 1.11 mg/dL (0.70-1.30) 05/06/18 06:35 Estimated GFR/1.73 m2 >= 60.00 (mL/min/1.73m2) 05/06/18 06:35 Glucose 98 mg/dL (70-100) 05/06/18 06:35 Lactate 1.0 mmol/L (0.6-1.4) 05/05/18 18:20 Calcium 8.2 mg/dL (8.5-10.1) L 05/06/18 06:35 Total Bilirubin 0.5 mg/dL (0.2-1.0) 05/05/18 18:20 AST 26 U/L (15-37) 05/05/18 18:20 ALT 23 U/L (12-78) 05/05/18 18:20 Alkaline Phosphatase 93 U/L (46-116) 05/05/18 18:20 C-Reactive Protein 5.14 mg/dL (0.0-0.3) H 05/06/18 06:35 Total Protein 6.3 g/dL (6.4-8.2) L 05/05/18 18:20 Albumin 3.1 g/dL (3.4-5.0) L 05/05/18 18:20 Urine Color Yellow (Yellow) 05/05/18 18:09 Urine Clarity Clear 05/05/18 18:09 Urine pH 7.0 (5-8) 05/05/18 18:09 Ur Specific [place] 1.015 (1.005-1.025) 05/05/18 18:09 Urine Protein Negative mg/dL (Negative) 05/05/18 18:09 Urine Ketones Negative mg/dL (Negative) 05/05/18 18:09 Urine Blood Trace-intact (Negative) H 05/05/18 18:09 Urine Nitrite Negative (Negative) 05/05/18 18:09 Urine Bilirubin Negative (Negative) 05/05/18 18:09 Urine Urobilinogen 2.0 EU/dL (Up TO 0.2) H 05/05/18 18:09 Ur Leukocyte Esterase Negative (Negative) 05/05/18 18:09 Urine RBC 0-2 (0-2) 05/05/18 18:09 Urine WBC 0-2 HPF (0-5) 05/05/18 18:09 Ur Epithelial Cells Rare HPF (Negative) 05/05/18 18:09 Urine Crystals Negative HPF (Negative) 05/05/18 18:09 Urine Bacteria Rare HPF (Negative) 05/05/18 18:09 Urine Casts Negative LPF (Negative) 05/05/18 18:09 Urine Mucus Negative (Negative) 05/05/18 18:09 Ur Culture Indicated? No 05/05/18 18:09 Urine Glucose Negative mg/dL (Negative) 05/05/18 18:09
--- NOTE | 2018-05-06 15:39 | CHAPLAIN ---
Brice was in bed, his sister Justine was visiting him, when I stopped in. Brice told me about his chemo treatments and his struggles with his most recent, fourth, treatment that led him to [facility]. He usually gets his treatments and care at [facility] in [place], but he was [place] on [address] when he began not to feel well. Brice said he has been impressed with the care and attention he has received here. He was very pleasant and easily engaged in a conversation, sharing some personal history. 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 He seemed to be well supported by his and sister.
--- NOTE | 2018-05-06 15:57 | PHARADMIT ---
Addendum entered by Ever Irving III 05/09/18 14:47: Pharmacy Note Subjective MD thinks back pain is musculara. Labs reported incorrect ANC yesterday..(0.37) Not 0.83 Objective VS-OK ANC-0.73 No BM Assessment Cefepime continues Plan Once ANC is above 1.00 and afebrile, may be discharged Original Note: Addendum entered by Ever Irving III 05/08/18 11:56: Pharmacy Note Subjective Patient experienced acute back overnight that was unrelieved by Diazepam or heat. MD wants to investigate with MRI to check for possible infection complications. Objective VS-OK (HR-83) ANC-0.83 WBC-1.54 Afebrile (37.1C) Plts-0.85 H&H-8.6/25.2 Assessment ANC ivan after Neupogen, Cefepime continues Plan MD wants to wait another 24 hrs for ANC to breach 1.00. Original Note: Addendum entered by Letha Eller 05/07/18 16:26: Pharmacy Note Subjective was looking a little better yesterday per morning report Objective HR-57 other VS okay WBC-1.71(down) ANC-0.46(down) Assessment filgrastim given today, cefepime continues Plan continue to watch labs Original Note: Admission Pharmacy Clinical Review neutropenic fever Code Status Full Code Current Weight 93.1 kg Renally Cleared and Narrow Therapeutic Index Meds Crcl ~68.00 mL/min current meds okay QTc Value / Action Taken n/a BP Control, Fever BP 149/87 afebrile Electrolytes reviewed Cl 108 DVT Prophylaxis on apixaban Opiate Usage / Scheduled Bowel Regimen Ordered no/prn Plt/SCr for Heparin / Enoxaparin plt 102 SCr 1.11 INR for Warfarin n/a H/H stable, WBC/Bands h/h 8.2/24.7 wbc 1.97 Antibiotic appropriateness cefepime Cultures and Sensitivities blood and urine cultures pending Surgical ABX d/c within 24 hr n/a DM control / Insulin Dosing BG 98 n/a Heart Failure (Check EF%) (SATYA's, B-Block, Diuretics) none IV to PO Switch n/a Home Meds Reviewed -olanzapine my enhance the adverse/toxic effects of lorazepam (clinical significance/severity of this interaction may be lower with PO meds) -multiple QTc prolonging meds: olanzapine, ondansetron -multiple BENEFITS COORDINATOR depressants: lorazepam, prochlorperazine, olanzapine Home Meds Not Ordered none Comments
[2018-05-06 16:51] VITALS: BP 135/82; PULSE 60; RESP 18; TEMP 37.1; O2SAT 99
[2018-05-06] MEDS: Lactulose 20 GM/30 ML CUP PO (21:46)
[2018-05-07] MEDS: Lactated Ringers 1,000 ML 125 ML IV ×2 (01:04→09:39)
[2018-05-07 04:23] VITALS: BP 130/63; PULSE 54; RESP 18; TEMP 208.2; TEMP 97.9; O2SAT 96
[2018-05-07] MEDS: CEFEPIME 2 GM in Normal Saline 100 ML IVPB ×3 (06:16→21:07)
[2018-05-07 06:54] LABS: HCT 25.2 % (40.0-50.0); HGB 8.4 g/dL (13.5-17.5); Mean Corp. HGB Concentration 33.3 g/dL (32.0-36.0); Mean Corpuscular Hemoglobin 29.7 pg (27.0-33.0); Mean Platelet Volume 9.4 fL (8.0-11.0); RBC 2.83 m/cumm (4.50-6.00)
[2018-05-07 07:21] LABS: White Blood Cell Count 1.71 k/cumm (4.4-10.8)
[2018-05-07 07:23] LABS: Platelet Count 102 x1000/uL (130-400)
[2018-05-07 07:24] LABS: Absolute Eosinophil Count 0.05 k/cumm (0.0-0.7); Absolute Lymphocyte Count 1.18 k/cumm (1.2-3.4); Absolute Monocyte Count 0.02 k/cumm (0.11-0.7)
[2018-05-07 07:25] LABS: Absolute Neutrophil Count 0.46 k/cumm (1.2-6.7); Anisocytosis 1+; Diff Comment Manual Differential; Hypochromasia 2+
[2018-05-07] MEDS: Pantoprazole 40 MG TABCR PO (07:59)
[2018-05-07] MEDS: Apixaban 5 MG TAB PO ×2 (07:59→19:41)
[2018-05-07] MEDS: Docusate Sodium 100 MG CAP PO (07:59)
[2018-05-07 08:53] VITALS: BP 139/77; PULSE 62; RESP 16; TEMP 36.4; O2SAT 98
--- NOTE | 2018-05-07 10:02 | PDOC.CMPRO ---
Date of Service: 05/07/18 Time of Service: 10:03 Care Management Progress Note S/O: Pt presented at interdisciplinary rounds. Brice is lying in bed with his , Tasha, at bedside, when CM visits this morning. He is engaged in conversation, makes good eye contact and is talkative. He reports that he is feeling a little better today compared with yesterday and is looking forward to seeing the MD to discuss next steps and discharge plans. He and his have concerns regarding having visitors once Brice has returned home. CM encouraged them to voice their concerns/questions with MD who would be discussing pt with his oncologist, Dr. Rishi Deutsch at [facility]. Brice continues to receive IV fluids and antibiotics. A: 67 year old male admitted with neutropenic fever. P: Brice will discharge home when medically ready per MD. Brice will transport via private vehicle with his , Tasha, and follow up with his primary care provider and oncologist. CM will continue to provide support to patient, family and care team regarding discharge planning and disposition.
--- NOTE | 2018-05-07 14:08 | PDOC.PROG ---
Date of Service: 05/07/18 Time of Service: 14:08 Assessment/Plan - Assessment/Plan (1) Neutropenic fever Assessment: No fevers subjectively or objectively over the past 48 hours. Cultures negative. I called Mr. Velazquez's oncologist at [facility], was out of town but discussed case with covering ASSOCIATE SPA DIRECTOR from team. Agreed with neupogen x 1 and continuing inpatient on cefepime until ANC trending up towards 1000 as long as continues afebrile. (2) Pulmonary emboli Assessment: no symptomatic, continue anticoagulation History of Present Illness - History of Present Illness Chief Complaint: fevers History of Present Illness: 24 hr: no events He still feels well. Eating. No fevers. No other new symptoms. Review of Systems - Review of Systems Constitutional: denies: Fever, Chills ENT: denies: Throat Pain Respiratory: denies: Cough, Shortness of Breath, Sputum Cardiovascular: denies: Chest Pain, Palpitations Gastrointestinal: denies: Nausea, Vomiting, Abdominal Pain, Diarrhea Genitourinary: denies: Dysuria Skin: denies: Rash, Lesions - Medications/Allergies Allergies/Adverse Reactions: Allergies Allergy/AdvReac Type Severity Reaction Status Date / Time No Known Allergies Allergy Unverified 05/05/18 17:27 Medications: Current Medications Acetaminophen (Tylenol) 0 mg PO Q4H PRN PRN Al Hydrox/Mg Hydrox/Simethicone (Mylanta Liquid) 30 ml PO Q2H PRN PRN Apixaban (Eliquis) 5 mg PO BID [facility] Last Admin: 05/07/18 07:59 Dose: 5 mg Dimethicone/Zinc Oxide (Chaitanya Protect Cream) 0 gm TP PRN PRN Docusate Sodium (Colace) 100 mg PO TID PRN PRN Last Admin: 05/07/18 07:59 Dose: 100 mg Ringer's Solution () 1,000 mls @ 125 mls/hr IV INFUSION [facility] Last Admin: 05/07/18 09:39 Dose: 125 mls/hr Cefepime HCl 2 gm/ Sodium (Chloride) 100 mls @ 200 mls/hr IVPB Q8H [facility] Last Admin: 05/07/18 06:16 Dose: 200 mls/hr IV Miscellaneous Supplies () 1 each IV DIRECTED [facility] Lactulose (Cephulac) 20 gm PO HS [facility] Last Admin: 05/06/18 21:46 Dose: 20 gm Lorazepam (Ativan) 0.5 mg PO QID PRN PRN PRN Reason: Anxiety Magnesium Hydroxide (Milk Of Magnesia) 30 ml PO DAILY PRN PRN Olanzapine (Zyprexa) 5 mg PO [facility] Last Admin: 05/06/18 21:48 Dose: 5 mg Ondansetron HCl (Zofran Odt) 8 mg PO Q8H PRN PRN PRN Reason: Nausea Last Admin: 05/06/18 23:21 Dose: 8 mg Pantoprazole Sodium (Protonix) 40 mg PO DAILY [facility] Last Admin: 05/07/18 07:59 Dose: 40 mg Polyethylene Glycol (Miralax) 17 gm PO DAILY PRN PRN PRN Reason: Constipation Prochlorperazine Maleate (Compazine) 10 mg PO Q6H PRN PRN PRN Reason: Nausea Sodium Chloride (Saline Flush 10 Ml Syringe) 0 ml IVP PRN PRN Objective - Exam Vitals and I&O: Vital Signs Temp 36.4 C L 05/07/18 08:53 Pulse 62 05/07/18 08:53 Resp 16 05/07/18 08:53 BP 139/77 05/07/18 08:53 Pulse Ox 98 05/07/18 08:53 Intake & Output 05/06/18 05/07/18 05/07/18 23:59 11:59 23:59 Intake Total 1231 4935 Balance 1231 4935 Intake: IV 871 4735 Oral 360 200 Other: Comment pt. reported Voiding Methods Toilet General: Alert, Oriented x3, Cooperative, No acute distress HEENT: Mucous membr. moist/pink, Other (no oral lesions) Neck: Supple. denies: LAD Lungs: Clear to auscultation, Normal air movement Cardiovascular: Regular rate, Normal S1, Normal S2. denies: Murmurs Abdomen: Normal bowel sounds, Soft. denies: Tenderness, Masses Extremities: denies: Cyanosis, Edema, Tenderness/swelling Skin: denies: Rashes - Results Results: Laboratory Results WBC 1.71 k/cumm (4.4-10.8) L* 05/07/18 06:15 RBC 2.83 m/cumm (4.50-6.00) L 05/07/18 06:15 Hgb 8.4 g/dL (13.5-17.5) L 05/07/18 06:15 Hct 25.2 % (40.0-50.0) L 05/07/18 06:15 MCV 89.0 fL (80-95) 05/07/18 06:15 MCH 29.7 pg (27.0-33.0) 05/07/18 06:15 MCHC 33.3 g/dL (32.0-36.0) 05/07/18 06:15 RDW 14.0 % (11.8-14.1) 05/07/18 06:15 Plt Count 102 x1000/uL (130-400) L 05/07/18 06:15 MPV 9.4 fL (8.0-11.0) 05/07/18 06:15 Immature Gran % 0.0 05/07/18 06:15 Neutrophils % 27.0 05/07/18 06:15 Lymphocytes % 69.0 05/07/18 06:15 Monocytes % 1.0 05/07/18 06:15 Eosinophils % 3.0 05/07/18 06:15 Basophils % 0.0 05/07/18 06:15 Absolute Neutrophils 0.46 k/cumm (1.2-6.7) L* 05/07/18 06:15 Absolute Lymphocytes 1.18 k/cumm (1.2-3.4) L 05/07/18 06:15 Absolute Monocytes 0.02 k/cumm (0.11-0.7) L 05/07/18 06:15 Absolute Eosinophils 0.05 k/cumm (0.0-0.7) 05/07/18 06:15 Absolute Basophils 0.00 k/cumm (0.0-0.2) 05/07/18 06:15 Differential Comment Manual differential 05/07/18 06:15 RBC Morphology See below 05/07/18 06:15 Hypochromasia 2+ 05/07/18 06:15 Anisocytosis 1+ 05/07/18 06:15 ESR 57 MM/HR (1-20) H 05/06/18 06:35 Sodium 139 mmol/L (136-145) 05/06/18 06:35 Potassium 4.1 mmol/L (3.5-5.1) 05/06/18 06:35 Chloride 108 mmol/L (98-107) H 05/06/18 06:35 Carbon Dioxide 26.4 mmol/L (21.0-32.0) 05/06/18 06:35 Anion Gap 4.6 mmol/L (3-11) 05/06/18 06:35 BUN 14 mg/dL (7-18) 05/06/18 06:35 Creatinine 1.11 mg/dL (0.70-1.30) 05/06/18 06:35 Estimated GFR/1.73 m2 >= 60.00 (mL/min/1.73m2) 05/06/18 06:35 Glucose 98 mg/dL (70-100) 05/06/18 06:35 Lactate 1.0 mmol/L (0.6-1.4) 05/05/18 18:20 Calcium 8.2 mg/dL (8.5-10.1) L 05/06/18 06:35 Total Bilirubin 0.5 mg/dL (0.2-1.0) 05/05/18 18:20 AST 26 U/L (15-37) 05/05/18 18:20 ALT 23 U/L (12-78) 05/05/18 18:20 Alkaline Phosphatase 93 U/L (46-116) 05/05/18 18:20 C-Reactive Protein 5.14 mg/dL (0.0-0.3) H 05/06/18 06:35 Total Protein 6.3 g/dL (6.4-8.2) L 05/05/18 18:20 Albumin 3.1 g/dL (3.4-5.0) L 05/05/18 18:20 Urine Color Yellow (Yellow) 05/05/18 18:09 Urine Clarity Clear 05/05/18 18:09 Urine pH 7.0 (5-8) 05/05/18 18:09 Ur Specific [place] 1.015 (1.005-1.025) 05/05/18 18:09 Urine Protein Negative mg/dL (Negative) 05/05/18 18:09 Urine Ketones Negative mg/dL (Negative) 05/05/18 18:09 Urine Blood Trace-intact (Negative) H 05/05/18 18:09 Urine Nitrite Negative (Negative) 05/05/18 18:09 Urine Bilirubin Negative (Negative) 05/05/18 18:09 Urine Urobilinogen 2.0 EU/dL (Up TO 0.2) H 05/05/18 18:09 Ur Leukocyte Esterase Negative (Negative) 05/05/18 18:09 Urine RBC 0-2 (0-2) 05/05/18 18:09 Urine WBC 0-2 HPF (0-5) 05/05/18 18:09 Ur Epithelial Cells Rare HPF (Negative) 05/05/18 18:09 Urine Crystals Negative HPF (Negative) 05/05/18 18:09 Urine Bacteria Rare HPF (Negative) 05/05/18 18:09 Urine Casts Negative LPF (Negative) 05/05/18 18:09 Urine Mucus Negative (Negative) 05/05/18 18:09 Ur Culture Indicated? No 05/05/18 18:09 Urine Glucose Negative mg/dL (Negative) 05/05/18 18:09 Path Cons Comment 05/05/18 18:20
--- NOTE | 2018-05-07 14:22 | PDOC.PROG_ITS ---
Date of Service: 05/07/18 Time of Service: 14:08 Assessment/Plan - Assessment/Plan (1) Neutropenic fever Assessment: No fevers subjectively or objectively over the past 48 hours. Cultures negative. I called Mr. Velazquez's oncologist at [facility], was out of town but discussed case with covering METAL LOADER from team. Agreed with neupogen x 1 and continuing inpatient on cefepime until ANC trending up towards 1000 as long as continues afebrile. (2) Pulmonary emboli Assessment: no symptomatic, continue anticoagulation History of Present Illness - History of Present Illness Chief Complaint: fevers History of Present Illness: 24 hr: no events He still feels well. Eating. No fevers. No other new symptoms. Review of Systems - Review of Systems Constitutional: denies: Fever, Chills ENT: denies: Throat Pain Respiratory: denies: Cough, Shortness of Breath, Sputum Cardiovascular: denies: Chest Pain, Palpitations Gastrointestinal: denies: Nausea, Vomiting, Abdominal Pain, Diarrhea Genitourinary: denies: Dysuria Skin: denies: Rash, Lesions - Medications/Allergies Allergies/Adverse Reactions: Allergies Allergy/AdvReac Type Severity Reaction Status Date / Time No Known Allergies Allergy Unverified 05/05/18 17:27 Medications: Current Medications Acetaminophen (Tylenol) 0 mg PO Q4H PRN PRN Al Hydrox/Mg Hydrox/Simethicone (Mylanta Liquid) 30 ml PO Q2H PRN PRN Apixaban (Eliquis) 5 mg PO BID [facility] Last Admin: 05/07/18 07:59 Dose: 5 mg Dimethicone/Zinc Oxide (Chaitanya Protect Cream) 0 gm TP PRN PRN Docusate Sodium (Colace) 100 mg PO TID PRN PRN Last Admin: 05/07/18 07:59 Dose: 100 mg Ringer's Solution () 1,000 mls @ 125 mls/hr IV INFUSION [facility] Last Admin: 05/07/18 09:39 Dose: 125 mls/hr Cefepime HCl 2 gm/ Sodium (Chloride) 100 mls @ 200 mls/hr IVPB Q8H [facility] Last Admin: 05/07/18 06:16 Dose: 200 mls/hr IV Miscellaneous Supplies () 1 each IV DIRECTED [facility] Lactulose (Cephulac) 20 gm PO HS [facility] Last Admin: 05/06/18 21:46 Dose: 20 gm Lorazepam (Ativan) 0.5 mg PO QID PRN PRN PRN Reason: Anxiety Magnesium Hydroxide (Milk Of Magnesia) 30 ml PO DAILY PRN PRN Olanzapine (Zyprexa) 5 mg PO [facility] Last Admin: 05/06/18 21:48 Dose: 5 mg Ondansetron HCl (Zofran Odt) 8 mg PO Q8H PRN PRN PRN Reason: Nausea Last Admin: 05/06/18 23:21 Dose: 8 mg Pantoprazole Sodium (Protonix) 40 mg PO DAILY [facility] Last Admin: 05/07/18 07:59 Dose: 40 mg Polyethylene Glycol (Miralax) 17 gm PO DAILY PRN PRN PRN Reason: Constipation Prochlorperazine Maleate (Compazine) 10 mg PO Q6H PRN PRN PRN Reason: Nausea Sodium Chloride (Saline Flush 10 Ml Syringe) 0 ml IVP PRN PRN Objective - Exam Vitals and I&O: Vital Signs Temp 36.4 C L 05/07/18 08:53 Pulse 62 05/07/18 08:53 Resp 16 05/07/18 08:53 BP 139/77 05/07/18 08:53 Pulse Ox 98 05/07/18 08:53 Intake & Output 05/06/18 05/07/18 05/07/18 23:59 11:59 23:59 Intake Total 1231 4935 Balance 1231 4935 Intake: IV 871 4735 Oral 360 200 Other: Comment pt. reported Voiding Methods Toilet General: Alert, Oriented x3, Cooperative, No acute distress HEENT: Mucous membr. moist/pink, Other (no oral lesions) Neck: Supple. denies: LAD Lungs: Clear to auscultation, Normal air movement Cardiovascular: Regular rate, Normal S1, Normal S2. denies: Murmurs Abdomen: Normal bowel sounds, Soft. denies: Tenderness, Masses Extremities: denies: Cyanosis, Edema, Tenderness/swelling Skin: denies: Rashes - Results Results: Laboratory Results WBC 1.71 k/cumm (4.4-10.8) L* 05/07/18 06:15 RBC 2.83 m/cumm (4.50-6.00) L 05/07/18 06:15 Hgb 8.4 g/dL (13.5-17.5) L 05/07/18 06:15 Hct 25.2 % (40.0-50.0) L 05/07/18 06:15 MCV 89.0 fL (80-95) 05/07/18 06:15 MCH 29.7 pg (27.0-33.0) 05/07/18 06:15 MCHC 33.3 g/dL (32.0-36.0) 05/07/18 06:15 RDW 14.0 % (11.8-14.1) 05/07/18 06:15 Plt Count 102 x1000/uL (130-400) L 05/07/18 06:15 MPV 9.4 fL (8.0-11.0) 05/07/18 06:15 Immature Gran % 0.0 05/07/18 06:15 Neutrophils % 27.0 05/07/18 06:15 Lymphocytes % 69.0 05/07/18 06:15 Monocytes % 1.0 05/07/18 06:15 Eosinophils % 3.0 05/07/18 06:15 Basophils % 0.0 05/07/18 06:15 Absolute Neutrophils 0.46 k/cumm (1.2-6.7) L* 05/07/18 06:15 Absolute Lymphocytes 1.18 k/cumm (1.2-3.4) L 05/07/18 06:15 Absolute Monocytes 0.02 k/cumm (0.11-0.7) L 05/07/18 06:15 Absolute Eosinophils 0.05 k/cumm (0.0-0.7) 05/07/18 06:15 Absolute Basophils 0.00 k/cumm (0.0-0.2) 05/07/18 06:15 Differential Comment Manual differential 05/07/18 06:15 RBC Morphology See below 05/07/18 06:15 Hypochromasia 2+ 05/07/18 06:15 Anisocytosis 1+ 05/07/18 06:15 ESR 57 MM/HR (1-20) H 05/06/18 06:35 Sodium 139 mmol/L (136-145) 05/06/18 06:35 Potassium 4.1 mmol/L (3.5-5.1) 05/06/18 06:35 Chloride 108 mmol/L (98-107) H 05/06/18 06:35 Carbon Dioxide 26.4 mmol/L (21.0-32.0) 05/06/18 06:35 Anion Gap 4.6 mmol/L (3-11) 05/06/18 06:35 BUN 14 mg/dL (7-18) 05/06/18 06:35 Creatinine 1.11 mg/dL (0.70-1.30) 05/06/18 06:35 Estimated GFR/1.73 m2 >= 60.00 (mL/min/1.73m2) 05/06/18 06:35 Glucose 98 mg/dL (70-100) 05/06/18 06:35 Lactate 1.0 mmol/L (0.6-1.4) 05/05/18 18:20 Calcium 8.2 mg/dL (8.5-10.1) L 05/06/18 06:35 Total Bilirubin 0.5 mg/dL (0.2-1.0) 05/05/18 18:20 AST 26 U/L (15-37) 05/05/18 18:20 ALT 23 U/L (12-78) 05/05/18 18:20 Alkaline Phosphatase 93 U/L (46-116) 05/05/18 18:20 C-Reactive Protein 5.14 mg/dL (0.0-0.3) H 05/06/18 06:35 Total Protein 6.3 g/dL (6.4-8.2) L 05/05/18 18:20 Albumin 3.1 g/dL (3.4-5.0) L 05/05/18 18:20 Urine Color Yellow (Yellow) 05/05/18 18:09 Urine Clarity Clear 05/05/18 18:09 Urine pH 7.0 (5-8) 05/05/18 18:09 Ur Specific [place] 1.015 (1.005-1.025) 05/05/18 18:09 Urine Protein Negative mg/dL (Negative) 05/05/18 18:09 Urine Ketones Negative mg/dL (Negative) 05/05/18 18:09 Urine Blood Trace-intact (Negative) H 05/05/18 18:09 Urine Nitrite Negative (Negative) 05/05/18 18:09 Urine Bilirubin Negative (Negative) 05/05/18 18:09 Urine Urobilinogen 2.0 EU/dL (Up TO 0.2) H 05/05/18 18:09 Ur Leukocyte Esterase Negative (Negative) 05/05/18 18:09 Urine RBC 0-2 (0-2) 05/05/18 18:09 Urine WBC 0-2 HPF (0-5) 05/05/18 18:09 Ur Epithelial Cells Rare HPF (Negative) 05/05/18 18:09 Urine Crystals Negative HPF (Negative) 05/05/18 18:09 Urine Bacteria Rare HPF (Negative) 05/05/18 18:09 Urine Casts Negative LPF (Negative) 05/05/18 18:09 Urine Mucus Negative (Negative) 05/05/18 18:09 Ur Culture Indicated? No 05/05/18 18:09 Urine Glucose Negative mg/dL (Negative) 05/05/18 18:09 Path Cons Comment 05/05/18 18:20
[2018-05-07 16:01] VITALS: BP 145/84; PULSE 57; RESP 16; TEMP 36.3; O2SAT 99
[2018-05-07] MEDS: Acetaminophen 325 MG TAB PO (19:43)
[2018-05-07] MEDS: OLANZapine 5 MG TAB PO (21:06)
[2018-05-07] MEDS: Lactulose 20 GM/30 ML CUP PO (21:07)
[2018-05-07] MEDS: LORazepam 0.5 MG TAB PO (21:07)
[2018-05-07] MEDS: Ondansetron O.D.T. 4 MG TABEF 8 MG PO (21:07)
[2018-05-07 23:54] VITALS: BP 138/84; PULSE 73; RESP 19; TEMP 37.8; O2SAT 95
[2018-05-08] MEDS: Diazepam 5 MG TAB PO (00:25)
[2018-05-08] MEDS: HYDROmorphone 2 MG/ML VIAL IVP (01:51)
[2018-05-08] MEDS: Mylanta Suspension 30 ML CUP PO (01:56)
[2018-05-08] MEDS: Prochlorperazine 10 MG TAB PO ×2 (02:22→15:14)
[2018-05-08] MEDS: CEFEPIME 2 GM in Normal Saline 100 ML IVPB ×3 (05:11→21:50)
[2018-05-08] MEDS: Acetaminophen 325 MG TAB PO ×3 (06:28→15:14)
[2018-05-08] MEDS: LORazepam 0.5 MG TAB PO (06:29)
[2018-05-08 07:12] LABS: Abs Immature Grans 0.12 k/cumm (0.0-0.09); HCT 25.2 % (40.0-50.0); HGB 8.6 g/dL (13.5-17.5); Mean Corp. HGB Concentration 34.1 g/dL (32.0-36.0); Mean Corpuscular Hemoglobin 30.4 pg (27.0-33.0); Mean Platelet Volume 9.4 fL (8.0-11.0); RBC 2.83 m/cumm (4.50-6.00); RBC Distribution Width 14.6 % (11.8-14.1)
[2018-05-08 07:18] LABS: White Blood Cell Count 1.54 k/cumm (4.4-10.8)
[2018-05-08 07:58] LABS: Absolute Eosinophil Count 0.05 k/cumm (0.0-0.7); Absolute Lymphocyte Count 0.92 k/cumm (1.2-3.4); Absolute Monocyte Count 0.17 k/cumm (0.11-0.7)
[2018-05-08 07:59] LABS: Hypochromasia 2+; Polychromasia Present
[2018-05-08 08:00] LABS: Platelet Count 85 x1000/uL (130-400); Poikilocytes 2+
[2018-05-08] MEDS: Apixaban 5 MG TAB PO ×2 (08:24→21:50)
[2018-05-08] MEDS: Pantoprazole 40 MG TABCR PO (08:24)
[2018-05-08] MEDS: Docusate Sodium 100 MG CAP PO (08:24)
[2018-05-08 08:28] VITALS: BP 129/67; PULSE 83; RESP 22; TEMP 37.1; O2SAT 94
--- NOTE | 2018-05-08 09:48 | PDOC.PROG ---
Date of Service: 05/08/18 Time of Service: 09:48 Assessment/Plan - Assessment/Plan (1) Lumbar back pain Assessment: Given severity of pain and neutropenic status, I think imaging warranted. Will get MRI as XR would not be sufficient given risk of discitis or other infectious complication. Could also be muscular, but we cannot be certain of this. Will continue opioids prn if pain severe again. (2) Neutropenic fever Assessment: Although he did not break the 38 degree threshhold, I am concerned that his tempurature was borderline last night and he felt feverish again. I will repeat u/a in addition to MRI as above. I don't see other signs of focal infection. Continue cefepime and reverse precautions, will observe 24hr before discharge from fever, so not today. He did respond to the G-CSF, ANC trending up. (3) Pulmonary emboli Assessment: Continue anticoagulation. History of Present Illness - History of Present Illness Chief Complaint: feverish, back pain History of Present Illness: 24 hr: Neupogen administered x 1 Last night had acute onset lower back pain, persisted despite diazepam, heat pad. Some improvement after IV hydromorphone. Pt states he has had low back pain in past, never as bad as last night. Described as spasm in lumbar spine area. He couldn't relieve it with position. diazepam didn't help much, heat pad made worse. Did feel feverish as well, nauseous during episode. Finally calmed down after some IV hydromorphone. Review of Systems - Review of Systems Constitutional: Fever, Sweats ENT: denies: Throat Pain Respiratory: denies: Cough, Shortness of Breath Cardiovascular: denies: Chest Pain, Palpitations Gastrointestinal: Nausea. denies: Abdominal Pain, Diarrhea Genitourinary: denies: Dysuria, Frequency, Incontinence Musculoskeletal: Back Pain. denies: Leg Pain Skin: denies: Rash Neurological: denies: Weakness, Numbness, Confusion - Medications/Allergies Allergies/Adverse Reactions: Allergies Allergy/AdvReac Type Severity Reaction Status Date / Time No Known Allergies Allergy Unverified 05/05/18 17:27 Medications: Current Medications Acetaminophen (Tylenol) 0 mg PO Q4H PRN PRN Last Admin: 05/08/18 06:28 Dose: 650 mg Al Hydrox/Mg Hydrox/Simethicone (Mylanta Liquid) 30 ml PO Q2H PRN PRN Last Admin: 05/08/18 01:56 Dose: 30 ml Apixaban (Eliquis) 5 mg PO BID [facility] Last Admin: 05/08/18 08:24 Dose: 5 mg Dimethicone/Zinc Oxide (Chaitanya Protect Cream) 0 gm TP PRN PRN Docusate Sodium (Colace) 100 mg PO TID PRN PRN Last Admin: 05/08/18 08:24 Dose: 100 mg Ringer's Solution () 1,000 mls @ 125 mls/hr IV INFUSION [facility] Last Admin: 05/07/18 09:39 Dose: 125 mls/hr Cefepime HCl 2 gm/ Sodium (Chloride) 100 mls @ 200 mls/hr IVPB Q8H [facility] Last Admin: 05/08/18 05:11 Dose: 200 mls/hr IV Miscellaneous Supplies () 1 each IV DIRECTED [facility] Lactulose (Cephulac) 20 gm PO HS [facility] Last Admin: 05/07/18 21:07 Dose: 20 gm Lorazepam (Ativan) 0.5 mg PO QID PRN PRN PRN Reason: Anxiety Last Admin: 05/08/18 06:29 Dose: 0.5 mg Magnesium Hydroxide (Milk Of Magnesia) 30 ml PO DAILY PRN PRN Olanzapine (Zyprexa) 5 mg PO [facility] Last Admin: 05/07/18 21:06 Dose: 5 mg Ondansetron HCl (Zofran Odt) 8 mg PO Q8H PRN PRN PRN Reason: Nausea Last Admin: 05/07/18 21:07 Dose: 8 mg Pantoprazole Sodium (Protonix) 40 mg PO DAILY [facility] Last Admin: 05/08/18 08:24 Dose: 40 mg Polyethylene Glycol (Miralax) 17 gm PO DAILY PRN PRN PRN Reason: Constipation Prochlorperazine Maleate (Compazine) 10 mg PO Q6H PRN PRN PRN Reason: Nausea Last Admin: 05/08/18 02:22 Dose: 10 mg Sodium Chloride (Saline Flush 10 Ml Syringe) 0 ml IVP PRN PRN Objective - Exam Vitals and I&O: Vital Signs Temp 37.1 C 05/08/18 08:28 Pulse 83 05/08/18 08:28 Resp 22 05/08/18 08:28 BP 129/67 05/08/18 08:28 Pulse Ox 94 L 05/08/18 08:28 Intake & Output 05/07/18 05/07/18 05/08/18 11:59 23:59 11:59 Intake Total 890 Balance 890 Intake: Oral 890 Other: Urine Color Yellow Urine Appearance Clear Comment voidng independently voided independently in toilet Voiding Methods Toilet General: Alert, Oriented x3, Cooperative, No acute distress HEENT: Mucous membr. moist/pink Lungs: Clear to auscultation, Normal air movement Cardiovascular: Regular rate, Normal S1, Normal S2. denies: Murmurs Abdomen: Normal bowel sounds, Soft. denies: Tenderness, Masses Extremities: Other (no point tenderness when palpating LS spine, no CVAT). denies: Edema, Tenderness/swelling Skin: denies: Rashes Neurological: Normal speech, Sensation intact Psych/Mental Status: Mental status NL - Results Results: Laboratory Results WBC 1.54 k/cumm (4.4-10.8) L* 05/08/18 06:50 RBC 2.83 m/cumm (4.50-6.00) L 05/08/18 06:50 Hgb 8.6 g/dL (13.5-17.5) L 05/08/18 06:50 Hct 25.2 % (40.0-50.0) L 05/08/18 06:50 MCV 89.0 fL (80-95) 05/08/18 06:50 MCH 30.4 pg (27.0-33.0) 05/08/18 06:50 MCHC 34.1 g/dL (32.0-36.0) 05/08/18 06:50 RDW 14.6 % (11.8-14.1) H 05/08/18 06:50 Plt Count 85 x1000/uL (130-400) L 05/08/18 06:50 MPV 9.4 fL (8.0-11.0) 05/08/18 06:50 Immature Gran % 0.0 05/08/18 06:50 Neutrophils % 50.0 05/08/18 06:50 Lymphocytes % 60.0 05/08/18 06:50 Monocytes % 11.0 05/08/18 06:50 Eosinophils % 3.0 05/08/18 06:50 Basophils % 0.0 05/08/18 06:50 Absolute Neutrophils 0.83 k/cumm (1.2-6.7) L 05/08/18 06:50 Band Neutrophils 4.0 % 05/08/18 06:50 Absolute Lymphocytes 0.92 k/cumm (1.2-3.4) L 05/08/18 06:50 Absolute Monocytes 0.17 k/cumm (0.11-0.7) 05/08/18 06:50 Absolute Eosinophils 0.05 k/cumm (0.0-0.7) 05/08/18 06:50 Absolute Basophils 0.00 k/cumm (0.0-0.2) 05/08/18 06:50 Metamyelocytes 2.0 % 05/08/18 06:50 Differential Comment Comment 05/08/18 06:50 RBC Morphology See below 05/08/18 06:50 Polychromasia Present 05/08/18 06:50 Hypochromasia 2+ 05/08/18 06:50 Poikilocytosis 2+ 05/08/18 06:50 Anisocytosis 1+ 05/07/18 06:15 ESR 57 MM/HR (1-20) H 05/06/18 06:35 Sodium 139 mmol/L (136-145) 05/06/18 06:35 Potassium 4.1 mmol/L (3.5-5.1) 05/06/18 06:35 Chloride 108 mmol/L (98-107) H 05/06/18 06:35 Carbon Dioxide 26.4 mmol/L (21.0-32.0) 05/06/18 06:35 Anion Gap 4.6 mmol/L (3-11) 05/06/18 06:35 BUN 14 mg/dL (7-18) 05/06/18 06:35 Creatinine 1.11 mg/dL (0.70-1.30) 05/06/18 06:35 Estimated GFR/1.73 m2 >= 60.00 (mL/min/1.73m2) 05/06/18 06:35 Glucose 98 mg/dL (70-100) 05/06/18 06:35 Lactate 1.0 mmol/L (0.6-1.4) 05/05/18 18:20 Calcium 8.2 mg/dL (8.5-10.1) L 05/06/18 06:35 Total Bilirubin 0.5 mg/dL (0.2-1.0) 05/05/18 18:20 AST 26 U/L (15-37) 05/05/18 18:20 ALT 23 U/L (12-78) 05/05/18 18:20 Alkaline Phosphatase 93 U/L (46-116) 05/05/18 18:20 C-Reactive Protein 5.14 mg/dL (0.0-0.3) H 05/06/18 06:35 Total Protein 6.3 g/dL (6.4-8.2) L 05/05/18 18:20 Albumin 3.1 g/dL (3.4-5.0) L 05/05/18 18:20 Urine Color Yellow (Yellow) 05/05/18 18:09 Urine Clarity Clear 05/05/18 18:09 Urine pH 7.0 (5-8) 05/05/18 18:09 Ur Specific [place] 1.015 (1.005-1.025) 05/05/18 18:09 Urine Protein Negative mg/dL (Negative) 05/05/18 18:09 Urine Ketones Negative mg/dL (Negative) 05/05/18 18:09 Urine Blood Trace-intact (Negative) H 05/05/18 18:09 Urine Nitrite Negative (Negative) 05/05/18 18:09 Urine Bilirubin Negative (Negative) 05/05/18 18:09 Urine Urobilinogen 2.0 EU/dL (Up TO 0.2) H 05/05/18 18:09 Ur Leukocyte Esterase Negative (Negative) 05/05/18 18:09 Urine RBC 0-2 (0-2) 05/05/18 18:09 Urine WBC 0-2 HPF (0-5) 05/05/18 18:09 Ur Epithelial Cells Rare HPF (Negative) 05/05/18 18:09 Urine Crystals Negative HPF (Negative) 05/05/18 18:09 Urine Bacteria Rare HPF (Negative) 05/05/18 18:09 Urine Casts Negative LPF (Negative) 05/05/18 18:09 Urine Mucus Negative (Negative) 05/05/18 18:09 Ur Culture Indicated? No 05/05/18 18:09 Urine Glucose Negative mg/dL (Negative) 05/05/18 18:09 Path Cons Comment 05/05/18 18:20
--- NOTE | 2018-05-08 09:52 | PDOC.PROG_ITS ---
Date of Service: 05/08/18 Time of Service: 09:48 Assessment/Plan - Assessment/Plan (1) Lumbar back pain Assessment: Given severity of pain and neutropenic status, I think imaging warranted. Will get MRI as XR would not be sufficient given risk of discitis or other infectious complication. Could also be muscular, but we cannot be certain of this. Will continue opioids prn if pain severe again. (2) Neutropenic fever Assessment: Although he did not break the 38 degree threshhold, I am concerned that his tempurature was borderline last night and he felt feverish again. I will repeat u/a in addition to MRI as above. I don't see other signs of focal infection. Continue cefepime and reverse precautions, will observe 24hr before discharge from fever, so not today. He did respond to the G-CSF, ANC trending up. (3) Pulmonary emboli Assessment: Continue anticoagulation. History of Present Illness - History of Present Illness Chief Complaint: feverish, back pain History of Present Illness: 24 hr: Neupogen administered x 1 Last night had acute onset lower back pain, persisted despite diazepam, heat pad. Some improvement after IV hydromorphone. Pt states he has had low back pain in past, never as bad as last night. Described as spasm in lumbar spine area. He couldn't relieve it with position. diazepam didn't help much, heat pad made worse. Did feel feverish as well, nauseous during episode. Finally calmed down after some IV hydromorphone. Review of Systems - Review of Systems Constitutional: Fever, Sweats ENT: denies: Throat Pain Respiratory: denies: Cough, Shortness of Breath Cardiovascular: denies: Chest Pain, Palpitations Gastrointestinal: Nausea. denies: Abdominal Pain, Diarrhea Genitourinary: denies: Dysuria, Frequency, Incontinence Musculoskeletal: Back Pain. denies: Leg Pain Skin: denies: Rash Neurological: denies: Weakness, Numbness, Confusion - Medications/Allergies Allergies/Adverse Reactions: Allergies Allergy/AdvReac Type Severity Reaction Status Date / Time No Known Allergies Allergy Unverified 05/05/18 17:27 Medications: Current Medications Acetaminophen (Tylenol) 0 mg PO Q4H PRN PRN Last Admin: 05/08/18 06:28 Dose: 650 mg Al Hydrox/Mg Hydrox/Simethicone (Mylanta Liquid) 30 ml PO Q2H PRN PRN Last Admin: 05/08/18 01:56 Dose: 30 ml Apixaban (Eliquis) 5 mg PO BID [facility] Last Admin: 05/08/18 08:24 Dose: 5 mg Dimethicone/Zinc Oxide (Chaitanya Protect Cream) 0 gm TP PRN PRN Docusate Sodium (Colace) 100 mg PO TID PRN PRN Last Admin: 05/08/18 08:24 Dose: 100 mg Ringer's Solution () 1,000 mls @ 125 mls/hr IV INFUSION [facility] Last Admin: 05/07/18 09:39 Dose: 125 mls/hr Cefepime HCl 2 gm/ Sodium (Chloride) 100 mls @ 200 mls/hr IVPB Q8H [facility] Last Admin: 05/08/18 05:11 Dose: 200 mls/hr IV Miscellaneous Supplies () 1 each IV DIRECTED [facility] Lactulose (Cephulac) 20 gm PO HS [facility] Last Admin: 05/07/18 21:07 Dose: 20 gm Lorazepam (Ativan) 0.5 mg PO QID PRN PRN PRN Reason: Anxiety Last Admin: 05/08/18 06:29 Dose: 0.5 mg Magnesium Hydroxide (Milk Of Magnesia) 30 ml PO DAILY PRN PRN Olanzapine (Zyprexa) 5 mg PO [facility] Last Admin: 05/07/18 21:06 Dose: 5 mg Ondansetron HCl (Zofran Odt) 8 mg PO Q8H PRN PRN PRN Reason: Nausea Last Admin: 05/07/18 21:07 Dose: 8 mg Pantoprazole Sodium (Protonix) 40 mg PO DAILY [facility] Last Admin: 05/08/18 08:24 Dose: 40 mg Polyethylene Glycol (Miralax) 17 gm PO DAILY PRN PRN PRN Reason: Constipation Prochlorperazine Maleate (Compazine) 10 mg PO Q6H PRN PRN PRN Reason: Nausea Last Admin: 05/08/18 02:22 Dose: 10 mg Sodium Chloride (Saline Flush 10 Ml Syringe) 0 ml IVP PRN PRN Objective - Exam Vitals and I&O: Vital Signs Temp 37.1 C 05/08/18 08:28 Pulse 83 05/08/18 08:28 Resp 22 05/08/18 08:28 BP 129/67 05/08/18 08:28 Pulse Ox 94 L 05/08/18 08:28 Intake & Output 05/07/18 05/07/18 05/08/18 11:59 23:59 11:59 Intake Total 890 Balance 890 Intake: Oral 890 Other: Urine Color Yellow Urine Appearance Clear Comment voidng independently voided independently in toilet Voiding Methods Toilet General: Alert, Oriented x3, Cooperative, No acute distress HEENT: Mucous membr. moist/pink Lungs: Clear to auscultation, Normal air movement Cardiovascular: Regular rate, Normal S1, Normal S2. denies: Murmurs Abdomen: Normal bowel sounds, Soft. denies: Tenderness, Masses Extremities: Other (no point tenderness when palpating LS spine, no CVAT). denies: Edema, Tenderness/swelling Skin: denies: Rashes Neurological: Normal speech, Sensation intact Psych/Mental Status: Mental status NL - Results Results: Laboratory Results WBC 1.54 k/cumm (4.4-10.8) L* 05/08/18 06:50 RBC 2.83 m/cumm (4.50-6.00) L 05/08/18 06:50 Hgb 8.6 g/dL (13.5-17.5) L 05/08/18 06:50 Hct 25.2 % (40.0-50.0) L 05/08/18 06:50 MCV 89.0 fL (80-95) 05/08/18 06:50 MCH 30.4 pg (27.0-33.0) 05/08/18 06:50 MCHC 34.1 g/dL (32.0-36.0) 05/08/18 06:50 RDW 14.6 % (11.8-14.1) H 05/08/18 06:50 Plt Count 85 x1000/uL (130-400) L 05/08/18 06:50 MPV 9.4 fL (8.0-11.0) 05/08/18 06:50 Immature Gran % 0.0 05/08/18 06:50 Neutrophils % 50.0 05/08/18 06:50 Lymphocytes % 60.0 05/08/18 06:50 Monocytes % 11.0 05/08/18 06:50 Eosinophils % 3.0 05/08/18 06:50 Basophils % 0.0 05/08/18 06:50 Absolute Neutrophils 0.83 k/cumm (1.2-6.7) L 05/08/18 06:50 Band Neutrophils 4.0 % 05/08/18 06:50 Absolute Lymphocytes 0.92 k/cumm (1.2-3.4) L 05/08/18 06:50 Absolute Monocytes 0.17 k/cumm (0.11-0.7) 05/08/18 06:50 Absolute Eosinophils 0.05 k/cumm (0.0-0.7) 05/08/18 06:50 Absolute Basophils 0.00 k/cumm (0.0-0.2) 05/08/18 06:50 Metamyelocytes 2.0 % 05/08/18 06:50 Differential Comment Comment 05/08/18 06:50 RBC Morphology See below 05/08/18 06:50 Polychromasia Present 05/08/18 06:50 Hypochromasia 2+ 05/08/18 06:50 Poikilocytosis 2+ 05/08/18 06:50 Anisocytosis 1+ 05/07/18 06:15 ESR 57 MM/HR (1-20) H 05/06/18 06:35 Sodium 139 mmol/L (136-145) 05/06/18 06:35 Potassium 4.1 mmol/L (3.5-5.1) 05/06/18 06:35 Chloride 108 mmol/L (98-107) H 05/06/18 06:35 Carbon Dioxide 26.4 mmol/L (21.0-32.0) 05/06/18 06:35 Anion Gap 4.6 mmol/L (3-11) 05/06/18 06:35 BUN 14 mg/dL (7-18) 05/06/18 06:35 Creatinine 1.11 mg/dL (0.70-1.30) 05/06/18 06:35 Estimated GFR/1.73 m2 >= 60.00 (mL/min/1.73m2) 05/06/18 06:35 Glucose 98 mg/dL (70-100) 05/06/18 06:35 Lactate 1.0 mmol/L (0.6-1.4) 05/05/18 18:20 Calcium 8.2 mg/dL (8.5-10.1) L 05/06/18 06:35 Total Bilirubin 0.5 mg/dL (0.2-1.0) 05/05/18 18:20 AST 26 U/L (15-37) 05/05/18 18:20 ALT 23 U/L (12-78) 05/05/18 18:20 Alkaline Phosphatase 93 U/L (46-116) 05/05/18 18:20 C-Reactive Protein 5.14 mg/dL (0.0-0.3) H 05/06/18 06:35 Total Protein 6.3 g/dL (6.4-8.2) L 05/05/18 18:20 Albumin 3.1 g/dL (3.4-5.0) L 05/05/18 18:20 Urine Color Yellow (Yellow) 05/05/18 18:09 Urine Clarity Clear 05/05/18 18:09 Urine pH 7.0 (5-8) 05/05/18 18:09 Ur Specific [place] 1.015 (1.005-1.025) 05/05/18 18:09 Urine Protein Negative mg/dL (Negative) 05/05/18 18:09 Urine Ketones Negative mg/dL (Negative) 05/05/18 18:09 Urine Blood Trace-intact (Negative) H 05/05/18 18:09 Urine Nitrite Negative (Negative) 05/05/18 18:09 Urine Bilirubin Negative (Negative) 05/05/18 18:09 Urine Urobilinogen 2.0 EU/dL (Up TO 0.2) H 05/05/18 18:09 Ur Leukocyte Esterase Negative (Negative) 05/05/18 18:09 Urine RBC 0-2 (0-2) 05/05/18 18:09 Urine WBC 0-2 HPF (0-5) 05/05/18 18:09 Ur Epithelial Cells Rare HPF (Negative) 05/05/18 18:09 Urine Crystals Negative HPF (Negative) 05/05/18 18:09 Urine Bacteria Rare HPF (Negative) 05/05/18 18:09 Urine Casts Negative LPF (Negative) 05/05/18 18:09 Urine Mucus Negative (Negative) 05/05/18 18:09 Ur Culture Indicated? No 05/05/18 18:09 Urine Glucose Negative mg/dL (Negative) 05/05/18 18:09 Path Cons Comment 05/05/18 18:20
[2018-05-08 10:33] LABS: Bilirubin Negative (Negative); Blood Negative (Negative); Clarity Sl Cloudy; Glucose Negative (Negative); Ketones Negative (Negative); Leukocyte Esterase Negative (Negative); Nitrite Negative (Negative); Urobilinogen 0.2 EU/dL (Up TO 0.2)
--- NOTE | 2018-05-08 10:38 | CMPROGNOTE_ITS ---
Care Management Progress Note S/O: Brice presented at interdisciplinary rounds, per RN report; Brice struggled with back spasms overnight, and he continues to be closely monitored especially his labs and temperature as he also had a low grade fever last night. Brice continues to receive IV fluids and antibiotics, MD discussed possibly treating back pain/spasms with Lidocaine patch ordered an MRI. Brice was lying on his side when CM entered the room; donned with PPE for Brice's protection. His , Tasha was at his bedside and shared no concerns at this time. A: 67 year old male admitted with neutropenic fever. P: Brice will discharge home when medically ready per MD. Brice will transport via private vehicle with his , Tasha, and follow up with his primary care provider and oncologist; Dr. Rishi Deutsch at [facility]. CM will continue to provide support to patient, family and care team regarding discharge planning and disposition.
[2018-05-08 11:14] LABS: Absolute Neutrophil Count 0.37 k/cumm (1.2-6.7)
[2018-05-08 11:30] VITALS: BP 139/88; PULSE 79; RESP 16; TEMP 37.5; O2SAT 95
[2018-05-08] MEDS: Gadoterate meglumine 20 ML VIAL 19 ML IVP (12:21)
--- NOTE | 2018-05-08 12:40 | DI.REPORT_ITS ---
SYMPTOM/DIAGNOSIS: NEUTROPENIC FEVER, NEW LUMBAR BACK PAIN, PROSTATE CA, GETTING CHEMOTHERAPY LUMBAR SPINE MRI: Pre and post contrast examination was performed. There are no priors for comparison. The conus medullaris has a normal appearance and location. At L 5-S 1, there is disc desiccation, endplate osteophytes and endplate degenerative signal changes present. There is a diffuse disc bulge. No significant central spinal canal stenosis is seen. There is mild bilateral neural foraminal stenosis. At L 4-5, there is disc desiccation. There is a small central disc herniation. There are hypertrophic changes of the facets. There is mild narrowing of the central spinal canal. No significant neural foraminal stenosis is seen. At L 3-4, there is disc desiccation. No significant central spinal canal stenosis is seen. No focal disc herniation is present. No significant neural foraminal stenosis is seen. At L 2-3, there is no focal disc herniation, central spinal canal or neural foraminal stenosis. At L 1-2, there is no focal disc herniation, central spinal canal or neural foraminal stenosis. There are two areas of abnormal signal noted, one in the L 1 vertebral body and the second and larger in the L 4 vertebral body. The larger area measures 2 craniocaudad by 2.4 cm. AP. These areas show enhancement following contrast administration. IMPRESSION: 1. 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 The findings are most marked at the L 4-5 disc level and the L 5-S 1 disc level. 2. Enhancing lesions seen in the L 1 and L 4 vertebral bodies. Metastatic disease cannot be excluded. Nuclear medicine examination should be considered for further evaluation.
--- NOTE | 2018-05-08 12:51 | DI.REPORT_ITS ---
SYMPTOMS/DIAGNOSIS: BACK PAIN, FEVER, PROSTATE CA, NEUTROPENIC LUMBOSACRAL SPINE: The vertebral bodies are intact. A narrowed vacuum disc is noted at L 5 - S 1. There is discogenic sclerosis and hypertrophic spurring. The pedicle, spinous and transverse processes are well maintained. Facet joint DJD is evident. There is nothing to suggest spondylosis or spondylolisthesis. The sacrum and sacroiliac joints appear intact. SUMMARY: Degenerative changes involving the lower lumbar spine as described above.
[2018-05-08] MEDS: Ondansetron O.D.T. 4 MG TABEF 8 MG PO (13:28)
[2018-05-08] MEDS: Normal Saline Flush 10 ML SYR IVP (13:29)
[2018-05-08 15:00] VITALS: BP 129/66; PULSE 73; RESP 18; TEMP 37.9; O2SAT 96
[2018-05-08 15:14] VITALS: TEMP 37.9
[2018-05-08] MEDS: Cyclobenzaprine 10 MG TAB PO (15:14)
[2018-05-08] MEDS: OLANZapine 5 MG TAB PO (21:50)
[2018-05-08] MEDS: Lactulose 20 GM/30 ML CUP PO (21:50)
[2018-05-08 22:30] VITALS: BP 139/88; PULSE 79; RESP 16; TEMP 37.5; O2SAT 95
[2018-05-09] VITALS (7 sets, daily range): BP systolic 117–146; BP diastolic 75–85; PULSE 75–87; RESP 16–20; TEMP 36.2–37.9; O2SAT 94–97
[2018-05-09] MEDS: CEFEPIME 2 GM in Normal Saline 100 ML IVPB ×3 (05:28→21:31)
[2018-05-09 06:57] LABS: Abs Immature Grans 0.06 k/cumm (0.0-0.09); HGB 8.8 g/dL (13.5-17.5); Mean Corp. HGB Concentration 33.8 g/dL (32.0-36.0); Mean Corpuscular Hemoglobin 30.6 pg (27.0-33.0); Mean Corpuscular Volume 90.3 fL (80-95); Mean Platelet Volume 9.3 fL (8.0-11.0); RBC 2.88 m/cumm (4.50-6.00); RBC Distribution Width 15.3 % (11.8-14.1); White Blood Cell Count 3.48 k/cumm (4.4-10.8)
[2018-05-09 08:14] LABS: Absolute Basophil Count 0.03 k/cumm (0.0-0.2); Absolute Eosinophil Count 0.07 k/cumm (0.0-0.7); Absolute Lymphocyte Count 1.46 k/cumm (1.2-3.4); Absolute Neutrophil Count 0.73 k/cumm (1.2-6.7); Atypical Lymphocytes % 2
[2018-05-09 08:15] LABS: Anisocytosis 1+; Diff Comment Manual Differential; Nucleated RBC 3 /100WBC; Polychromasia Present
[2018-05-09 08:16] LABS: Platelet Count 96 x1000/uL (130-400)
[2018-05-09] MEDS: Pantoprazole 40 MG TABCR PO (08:23)
[2018-05-09] MEDS: Apixaban 5 MG TAB PO ×2 (08:23→19:58)
--- NOTE | 2018-05-09 10:23 | PDOC.CMPRO ---
Date of Service: 05/09/18 Time of Service: 10:23 Care Management Progress Note S/O: Brice was presented at interdisciplinary rounds. He is lying in bed when CM visits this morning. He is engaged in conversation, makes good eye contact and is talkative. Brice reports that his back spasms have subsided and he was able to sleep well last evening. His appetite has been good and he is looking forward to returning home to [facility]. He has family visiting who he reports will either stay with him or at his home next door. Brice is on neutropenic precautions and continues to receive IV antibiotics. A: 67 year old male admitted with neutropenic fever. P: Brice will discharge home when medically ready per MD. Brice will transport via private vehicle with his , Tasha, and follow up with his primary care provider and oncologist; Dr. Rishi Deutsch at [facility]. CM will continue to provide support to patient, family and care team regarding discharge planning and disposition.
--- NOTE | 2018-05-09 10:30 | CMPROGNOTE_ITS ---
Date of Service: 05/09/18 Time of Service: 10:23 Care Management Progress Note S/O: Brice was presented at interdisciplinary rounds. He is lying in bed when CM visits this morning. He is engaged in conversation, makes good eye contact and is talkative. Brice reports that his back spasms have subsided and he was able to sleep well last evening. His appetite has been good and he is looking forward to returning home to [facility]. He has family visiting who he reports will either stay with him or at his home next door. Brice is on neutropenic precautions and continues to receive IV antibiotics. A: 67 year old male admitted with neutropenic fever. P: Brice will discharge home when medically ready per MD. Brice will transport via private vehicle with his , Tasha, and follow up with his primary care provider and oncologist; Dr. Rishi Deutsch at [facility]. CM will continue to provide support to patient, family and care team regarding discharge planning and disposition.
[2018-05-09 11:52] LABS: Other Cells 8
--- NOTE | 2018-05-09 14:34 | PDOC.PROG_ITS ---
Date of Service: 05/09/18 Time of Service: 14:32 Assessment/Plan - Assessment/Plan (1) Lumbar back pain Assessment: MRI did show enhancing lesion possibly c/w prostate cancer. He was told he had some lesions in his spine before that were shrinking with chemo (images at [facility]). Has prn flexiril and hydromorphone along with topical treatment. (2) Neutropenic fever Assessment: ANC finally really going up today after revised lab yesterday showed ANC decrease. Unfortunately had another borderline fever episode, so will observe again overnight. If no fever episodes and ANC continues to trend up (hopefully over 1000) we will plan discharge tomorrow. (3) Pulmonary emboli Assessment: Continue anticoagulation. (4) Rash and nonspecific skin eruption Assessment: Does appear possible allergic rash. Not symptomatic. Only new medications here cefepime and neupogen. Given rash is mild, will continue cefepime. Monitor for spread History of Present Illness - History of Present Illness Chief Complaint: fevers History of Present Illness: events: had one episode of nausea a/w temperature of 37.9 on 3-11 shift 05/08/18 MRI done of Lumbar spine, showed OA and 2 enhancing lesions, no signs infection S: He feels well today. No fevers, admits a little clammy last night with episode of nausea. He denies overt fever/chills or any new pains or other symptoms. He is eating okay and his energy level is stable. He denies bleeding. nursing did note a rash on his back. He though may be related to alexa that was irritating yesterday, which was changed to hypoallergenic. no spreading to other parts of the body, no oral sores. Review of Systems - Review of Systems Constitutional: Sweats. denies: Fever Eyes: denies: Conjunctivae Inflammation ENT: denies: Mouth Swelling, Throat Pain Respiratory: denies: Cough, Shortness of Breath Cardiovascular: denies: Chest Pain, Palpitations, Light Headedness Gastrointestinal: Nausea, Constipation (no bm x 2 days). denies: Abdominal Pain , Diarrhea Genitourinary: denies: Dysuria, Frequency Musculoskeletal: Back Pain Skin: Rash. denies: Dario, Bruising Neurological: denies: Weakness, Confusion - Medications/Allergies Allergies/Adverse Reactions: Allergies Allergy/AdvReac Type Severity Reaction Status Date / Time No Known Allergies Allergy Unverified 05/05/18 17:27 Medications: Current Medications Acetaminophen (Tylenol) 0 mg PO Q4H PRN PRN Last Admin: 05/08/18 15:14 Dose: 650 mg Al Hydrox/Mg Hydrox/Simethicone (Mylanta Liquid) 30 ml PO Q2H PRN PRN Last Admin: 05/08/18 01:56 Dose: 30 ml Apixaban (Eliquis) 5 mg PO BID [facility] Last Admin: 05/09/18 08:23 Dose: 5 mg Cyclobenzaprine HCl (Flexeril) 10 mg PO TID PRN PRN Last Admin: 05/08/18 15:14 Dose: 10 mg Dimethicone/Zinc Oxide (Chaitanya Protect Cream) 0 gm TP PRN PRN Docusate Sodium (Colace) 100 mg PO TID PRN PRN Last Admin: 05/08/18 08:24 Dose: 100 mg Hydromorphone HCl (Dilaudid Injection) 2 mg IVP Q4H PRN PRN Cefepime HCl 2 gm/ Sodium (Chloride) 100 mls @ 200 mls/hr IVPB Q8H [facility] Last Admin: 05/09/18 14:15 Dose: 200 mls/hr IV Miscellaneous Supplies () 1 each IV DIRECTED [facility] Lactulose (Cephulac) 20 gm PO HS [facility] Last Admin: 05/08/18 21:50 Dose: 20 gm Lorazepam (Ativan) 0.5 mg PO QID PRN PRN PRN Reason: Anxiety Last Admin: 05/08/18 06:29 Dose: 0.5 mg Magnesium Hydroxide (Milk Of Magnesia) 30 ml PO DAILY PRN PRN Olanzapine (Zyprexa) 5 mg PO HS [facility] Last Admin: 05/08/18 21:50 Dose: 5 mg Ondansetron HCl (Zofran Odt) 8 mg PO Q8H PRN PRN PRN Reason: Nausea Last Admin: 05/08/18 13:28 Dose: 8 mg Pantoprazole Sodium (Protonix) 40 mg PO DAILY [facility] Last Admin: 05/09/18 08:23 Dose: 40 mg Polyethylene Glycol (Miralax) 17 gm PO DAILY PRN PRN PRN Reason: Constipation Prochlorperazine Maleate (Compazine) 10 mg PO Q6H PRN PRN PRN Reason: Nausea Last Admin: 05/08/18 15:14 Dose: 10 mg Sodium Chloride (Saline Flush 10 Ml Syringe) 0 ml IVP PRN PRN Last Admin: 05/08/18 13:29 Dose: 20 ml Objective - Exam Vitals and I&O: Vital Signs Temp 36.5 C 05/09/18 12:00 Pulse 87 05/09/18 12:00 Resp 18 05/09/18 12:00 BP 117/75 05/09/18 12:00 Pulse Ox 96 05/09/18 12:00 Intake & Output 05/08/18 05/09/18 05/09/18 23:59 11:59 23:59 Intake Total 360 1030 240 Output Total 600 Balance -240 1030 240 Intake: Oral 360 1030 240 Output: Emesis 600 Other: Urine Color Yellow Urine Appearance Clear Urine Odor None Comment reports voiding into toilet w/o difficulty Void x1 in the toilet. Emesis Description Undigested Food Clear/Water Voiding Methods Toilet General: Alert, Oriented x3, Cooperative, No acute distress HEENT: Mucous membr. moist/pink Lungs: Clear to auscultation, Normal air movement Cardiovascular: Regular rate, Normal S1, Normal S2. denies: Murmurs Abdomen: Normal bowel sounds, Soft. denies: Tenderness, Masses Extremities: denies: Cyanosis, Edema, Tenderness/swelling Skin: Rashes (pink papules scattered bilateral upper back) Psych/Mental Status: Mental status NL, Mood NL - Results Results: Laboratory Results WBC 3.48 k/cumm (4.4-10.8) L D 05/09/18 06:30 RBC 2.88 m/cumm (4.50-6.00) L 05/09/18 06:30 Hgb 8.8 g/dL (13.5-17.5) L 05/09/18 06:30 Hct 26.0 % (40.0-50.0) L 05/09/18 06:30 MCV 90.3 fL (80-95) 05/09/18 06:30 MCH 30.6 pg (27.0-33.0) 05/09/18 06:30 MCHC 33.8 g/dL (32.0-36.0) 05/09/18 06:30 RDW 15.3 % (11.8-14.1) H 05/09/18 06:30 Plt Count 96 x1000/uL (130-400) L 05/09/18 06:30 MPV 9.3 fL (8.0-11.0) 05/09/18 06:30 Immature Gran % See Differential 05/09/18 06:30 Neutrophils % 11.0 05/09/18 06:30 Lymphocytes % 40.0 05/09/18 06:30 Monocytes % 20.0 05/09/18 06:30 Eosinophils % 2.0 05/09/18 06:30 Basophils % 1.0 05/09/18 06:30 Absolute Neutrophils 0.73 k/cumm (1.2-6.7) L 05/09/18 06:30 Band Neutrophils 10.0 % 05/09/18 06:30 Absolute Lymphocytes 1.46 k/cumm (1.2-3.4) 05/09/18 06:30 Absolute Monocytes 0.70 k/cumm (0.11-0.7) 05/09/18 06:30 Absolute Eosinophils 0.07 k/cumm (0.0-0.7) 05/09/18 06:30 Absolute Basophils 0.03 k/cumm (0.0-0.2) 05/09/18 06:30 Metamyelocytes 3.0 % 05/09/18 06:30 Myelocytes 3.0 % 05/09/18 06:30 Nucleated RBCs 3 /100WBC 05/09/18 06:30 Differential Comment Manual differential 05/09/18 06:30 Atypical Lymphocytes 2 05/09/18 06:30 Other Cell Type 8 05/09/18 06:30 RBC Morphology See below 05/09/18 06:30 Polychromasia Present 05/09/18 06:30 Hypochromasia 2+ 05/08/18 06:50 Poikilocytosis 2+ 05/08/18 06:50 Anisocytosis 1+ 05/09/18 06:30 ESR 57 MM/HR (1-20) H 05/06/18 06:35 Sodium 139 mmol/L (136-145) 05/06/18 06:35 Potassium 4.1 mmol/L (3.5-5.1) 05/06/18 06:35 Chloride 108 mmol/L (98-107) H 05/06/18 06:35 Carbon Dioxide 26.4 mmol/L (21.0-32.0) 05/06/18 06:35 Anion Gap 4.6 mmol/L (3-11) 05/06/18 06:35 BUN 14 mg/dL (7-18) 05/06/18 06:35 Creatinine 1.11 mg/dL (0.70-1.30) 05/06/18 06:35 Estimated GFR/1.73 m2 >= 60.00 (mL/min/1.73m2) 05/06/18 06:35 Glucose 98 mg/dL (70-100) 05/06/18 06:35 Lactate 1.0 mmol/L (0.6-1.4) 05/05/18 18:20 Calcium 8.2 mg/dL (8.5-10.1) L 05/06/18 06:35 Total Bilirubin 0.5 mg/dL (0.2-1.0) 05/05/18 18:20 AST 26 U/L (15-37) 05/05/18 18:20 ALT 23 U/L (12-78) 05/05/18 18:20 Alkaline Phosphatase 93 U/L (46-116) 05/05/18 18:20 C-Reactive Protein 5.14 mg/dL (0.0-0.3) H 05/06/18 06:35 Total Protein 6.3 g/dL (6.4-8.2) L 05/05/18 18:20 Albumin 3.1 g/dL (3.4-5.0) L 05/05/18 18:20 Urine Color Yellow (Yellow) 05/08/18 10:18 Urine Clarity Sl cloudy 05/08/18 10:18 Urine pH 7.0 (5-8) 05/08/18 10:18 Ur Specific [place] 1.010 (1.005-1.025) 05/08/18 10:18 Urine Protein Negative mg/dL (Negative) 05/08/18 10:18 Urine Ketones Negative mg/dL (Negative) 05/08/18 10:18 Urine Blood Negative (Negative) 05/08/18 10:18 Urine Nitrite Negative (Negative) 05/08/18 10:18 Urine Bilirubin Negative (Negative) 05/08/18 10:18 Urine Urobilinogen 0.2 EU/dL (Up TO 0.2) 05/08/18 10:18 Ur Leukocyte Esterase Negative (Negative) 05/08/18 10:18 Urine RBC 0-2 (0-2) 05/05/18 18:09 Urine WBC 0-2 HPF (0-5) 05/05/18 18:09 Ur Epithelial Cells Rare HPF (Negative) 05/05/18 18:09 Urine Crystals Negative HPF (Negative) 05/05/18 18:09 Urine Bacteria Rare HPF (Negative) 05/05/18 18:09 Urine Casts Negative LPF (Negative) 05/05/18 18:09 Urine Mucus Negative (Negative) 05/05/18 18:09 Ur Culture Indicated? No 05/05/18 18:09 Urine Glucose Negative mg/dL (Negative) 05/08/18 10:18 Path Cons Comment 05/05/18 18:20
--- NOTE | 2018-05-09 14:55 | CHAPLAIN ---
Brice was in bed when I visited. His and stepdaughter were with him. rBice talked about the painful back spasms he had the night before, but said he slept well last night. He was waiting to her some lab results to hear if he would be able to go home today. He seems to be well supported by family. His son is coming in today after arriving late last night from [place], [place]. Brice and his family are currently staying at his camp on [address] and live in [place] the rests of the year. 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
[2018-05-09] MEDS: Normal Saline Flush 10 ML SYR IVP (15:20)
[2018-05-09] MEDS: Docusate Sodium 100 MG CAP PO (18:25)
[2018-05-09] MEDS: Mylanta Suspension 30 ML CUP PO (19:56)
[2018-05-09] MEDS: Prochlorperazine 10 MG TAB PO (21:31)
[2018-05-09] MEDS: OLANZapine 5 MG TAB PO (22:38)
[2018-05-10 07:40] VITALS: BP 128/83; PULSE 65; RESP 18; TEMP 36.4; O2SAT 96
[2018-05-10] MEDS: Docusate Sodium 100 MG CAP PO (08:50)
[2018-05-10] MEDS: Apixaban 5 MG TAB PO (08:50)
[2018-05-10] MEDS: Pantoprazole 40 MG TABCR PO (08:50)
[2018-05-10 15:06] LABS: Absolute Eosinophil Count 0.08 k/cumm (0.0-0.7); Absolute Lymphocyte Count 1.59 k/cumm (1.2-3.4); Absolute Monocyte Count 1.43 k/cumm (0.11-0.7); Absolute Neutrophil Count 4.38 k/cumm (1.2-6.7); HCT 24.8 % (40.0-50.0); HGB 8.4 g/dL (13.5-17.5); Mean Corp. HGB Concentration 33.9 g/dL (32.0-36.0); Mean Corpuscular Hemoglobin 30.4 pg (27.0-33.0); Mean Corpuscular Volume 89.9 fL (80-95); Mean Platelet Volume 10.1 fL (8.0-11.0); Platelet Count 114 x1000/uL (130-400); RBC 2.76 m/cumm (4.50-6.00); RBC Distribution Width 15.6 % (11.8-14.1); White Blood Cell Count 7.96 k/cumm (4.4-10.8)
[2018-05-10 15:07] LABS: Hypochromasia 2+; Microcytosis 2+; Nucleated RBC 1 /100WBC
--- NOTE | 2018-05-10 16:51 | W.PM.DS.N ---
DS: Diagnosis Discharge Diagnosis (1) Neutropenic fever: Status: Acute Asessment and Plan: Presented with fever and ANC of 500. Empirically placed on cefepime. Blood cultures drawn and came back no growth. He received a dose of Neupogen. Counts rebounded to ANC of nearly 4000. No evidence of systemic infection. (2) Prostate CA: Status: Chronic Asessment and Plan: Advanced prostate cancer. Completed round 4 of chemotherapy on 04/26/2018. Further follow-up at [facility] as scheduled. (3) Lumbar back pain: Status: Acute Asessment and Plan: Severe lumbar back pain with back spasm. MRI of his back this admission showed degenerative joint disease and one focal area that metastatic disease could not be fully ruled out. Appendectomy of this study was provided to the patient to be reviewed by oncology. Discharge Plan Discharge Details Reason For Visit: NEUTROPENIC FEVER Admit Date/Time: 05/07/18 14:27 Admit Provider: Keith Busch Attending Provider: Keith Busch Primary Care Provider: Lino To Disposition Patient Disposition: HOME Condition: Serious Hosptial Course Hospital Course: 67-year-old male with advanced prostate cancer presented 05/07/2018 with neutropenic fever. His absolute neutrophil count was low at about 500 and dropped to about 300. He received a dose of Neupogen on 05/07/2018. His ANC came up nicely to about 4000 on the day of discharge. His blood cultures were no growth. He was empirically placed on cefepime IV. He had no further fevers and no signs of systemic illness. He did have a few bouts of episodic vomiting controlled with antiemetic medications. He had some severe lower back pain and spasm. He had an MRI of that region that showed degenerative joint disease and one small area in which metastatic disease could not be fully ruled out. A copy of this study was provided in disc form for the family to pass onto his urology oncologist at [facility]. Home Meds and New Rx's Prescriptions: New cyclobenzaprine 10 mg Tablet 10 mg PO TID PRN PRNQty: 10 RF: 0 Continue pantoprazole 40 MG tablet,delayed release (DR/EC) 40 mg PO DAILY RF: 0 apixaban [Eliquis] 5 MG tablet 5 mg PO BID RF: 0 lactulose 10 GM/15 ML solution 30 ml PO HS RF: 0 lorazepam [Ativan] 0.5 MG tablet 0.5 mg PO Q6H PRNRF: 0 olanzapine [Zyprexa] 5 MG tablet 5 mg PO HS RF: 0 ondansetron 8 MG tablet,disintegrating 8 mg PO Q8H PRNRF: 0 prochlorperazine maleate [Compazine] 10 MG tablet 10 mg PO Q6H PRNRF: 0 Discharge Instructions Instructions: Neutropenia (DC) Activity:: Activity as Tolerated Equipment/Supplies:: No Equipment Needed Diet:: As Tolerated Discharge Orders Discharge Orders: Discharge Order (Routine); Ordered 05/10/18 Ordered By: Clemente Monroe DS: Summary Status at Discharge Functional status at discharge: independent ambulation Overall status at discharge: patient is back to baseline Time Spent with Patient Greater than 30 minutes Exam Narrative Exam Narrative: Patient's vitals were stable, temp 36.4 blood pressure 128/83 respiratory rate 18 pulse 65 sat was 96% on room air. He was sitting up and in good spirits and in no distress. DS: Data Labs on day of discharge: Labs from last 24 hours 05/10/18 06:00 WBC 7.96 D RBC 2.76 L Hgb 8.4 L Hct 24.8 L MCV 89.9 MCH 30.4 MCHC 33.9 RDW 15.6 H Plt Count 114 L MPV 10.1 Immature Gran % See Differential Neutrophils % 50.0 Lymphocytes % 20.0 Monocytes % 18.0 Eosinophils % 1.0 Basophils % 0.0 Absolute Neutrophils 4.38 Band Neutrophils 5.0 Absolute Lymphocytes 1.59 Absolute Monocytes 1.43 H Absolute Eosinophils 0.08 Absolute Basophils 0.00 Metamyelocytes 6.0 Nucleated RBCs 1 Hypochromasia 2+ Microcytosis 2+ Preliminary micro results at discharge 05/05/18 20:40 Blood Culture - Preliminary Blood NO GROWTH 96 HOURS 05/05/18 20:20 Blood Culture - Preliminary Blood NO GROWTH 96 HOURS Date of service: 05/10/18 Time of Service: 16:52
--- NOTE | 2018-05-11 11:37 | PDOC.CMDIS ---
LACE Index Scoring Tool - Questions: Length of Stay (in days): 4 - 6 Acuity (Admit via E.D.?): Yes Comorbidities: Metastatic Solid Tumor (Metastatic prostate cancer) E.D. Visits: 1 - Answers: Total Score: 13 Risk of Readmission: High Risk Care Management Discharge Reason for Hospitalization: Neutropenic fever. Discharge Plan: Home and no services needed. , Tasha, will transport by private vehicle when medically cleared for discharge. Patient/Family Education Needs: Discharge instructions.
== END 2018-05-10 12:19 | disposition home or self-care (01) | DRG 810 ==
LOC: ER 05-10 10:14 → MS 05-10 10:14
PROVIDERS: Internal Medicine; Physician Assistant; Admitting Provider Family Medicine; Emergency Provider Physician Assistant; PCP Internal Medicine; Visit Provider Family Medicine
DX: D70.9 Neutropenia, unspecified (principal); R50.81 Fever presenting with conditions classified elsewhere; C61 Malignant neoplasm of prostate; M54.5 Low back pain; M62.830 Muscle spasm of back; Z79.01 Long term (current) use of anticoagulants; Z86.711 Personal history of pulmonary embolism; L27.1 Localized skin eruption due to drugs and medicaments taken internally
CPT/HCPCS: 36415; 72158; 80048; 80053; 85652; 87040; 96361; 96374; 96375; 99239; 99285; 71046; 72100; 81003; 81015; 83605; 85025; 86140; 87086; 99220; 99284; G0378; J0713; J2405